=== PATIENT | male | born 1945 | race Caucasian/White ===

== ENCOUNTER 2020-04-16 11:43 | Outpatient (REF) | payer MEDICARE, SELFPAY ==
--- NOTE | 2020-04-16 12:09 | XR_ITS ---
EXAMINATION: XR CHEST CLINICAL INFORMATION: Hypertension and weight loss. Evaluate for lesion. COMPARISON: Previous chest x-ray most recent December 2017 TECHNIQUE: 2 views of the chest were obtained. FINDINGS: The cardiac and mediastinal contours are normal. There is a 1.3 cm nodule at the right lung base. This is seen on the PA view only and is similar to December 2017 exam. The lungs are otherwise clear. There is no pleural effusion or pneumothorax. There are bilateral rib fractures. There are degenerative changes of the spine. XR/XR chest 2V IMPRESSION: 1.3 cm right base pulmonary nodule. It is uncertain whether this represents a pulmonary nodule or a nipple shadow. Follow-up chest CT or chest x-ray with nipple markers recommended.
[2020-04-16 12:29] LABS: MANUAL DIFF FLAG NO
[2020-04-16 12:31] LABS: Basophils Percent Auto 0.3 % (0-2); Eosinophils Percent Auto 0.3 % (0-4); Hematocrit 43.3 % (42-52); Hemoglobin 14.2 g/dl (14.0-18.0); Imm Gran Abs Auto 0.03 X10*3/uL (0.00-0.03); Imm Gran Pct Auto 0.5 % (0.0-0.4); Lymphocytes Absolute Auto 1.5 X10*3/uL (1.2-4.9); Lymphocytes Percent Auto 23.4 % (20-40); Mean Corpuscular HGB Conc 32.8 g/dl (31.0-36.0); Mean Corpuscular Hemoglobin 30.4 pg (27.0-33.0); Mean Corpuscular Volume 92.7 fL (80-98); Mean Platelet Volume 11.5 fL (9.4-12.4); Monocytes Absolute Auto 1.1 X10*3/uL (0.1-1.2); Monocytes Percent Auto 17.1 % (2-11); Neutrophils Absolute Auto 3.8 X10*3/uL (2.0-8.3); Neutrophils Percent Auto 58.4 % (45-73); Platelet Count 267 X10*3/uL (160-400); Red Blood Count 4.67 X10*6/uL (4.60-5.80); Red Cell Distribution Width 13.3 % (11.0-16.0); White Blood Count 6.5 X10*3/uL (4.8-10.8)
[2020-04-16 12:38] LABS: Glucose Urine UA 100 MG/DL (NEG); Leukocyte Esterase Urine NEG (NEG); Nitrite Urine NEG (NEG); Specific Gravity - Urine 1.025 (1.005-1.025); Urine Blood NEG (NEG); Urine Ketones NEG (NEG); Urine Protein 1+ MG/DL (NEG-TRACE)
[2020-04-16 12:39] LABS: Appearance Urine CLEAR; Color Urine YELLOW
[2020-04-16 12:40] LABS: Estimated Average Glucose 255 mg/dL; Hemoglobin A1c % 10.5 %
[2020-04-16 12:47] LABS: WBC Urine 0 /HPF (0-4)
[2020-04-16 13:00] LABS: Alanine Aminotransferase 19 U/L (0-40); Albumin Level 4.4 g/dL (3.5-5.0); Alkaline Phosphatase 87 U/L (39-117); Anion Gap 13 (12-20); Aspartate Amino Transferase 20 U/L (5-37); Bilirubin Total 0.4 mg/dL (0.0-1.0); Blood Urea Nitrogen 15 mg/dL (9-16); Calcium 9.6 mg/dL (8.4-10.2); Carbon Dioxide 28 mmol/L (22-29); Chloride 99 mmol/L (96-108); Cholesterol 185 mg/dL; Estimated Glomerular Filt Rate > 60; Glucose Random 302 mg/dL (60-115); Potassium 5.9 mmol/l (3.3-5.1); Sodium 134 mmol/L (135-145); Total Protein 6.6 g/dL (6.5-8.0)
[2020-04-16 13:19] LABS: Free T4 (Free Thyroxine) 0.87 ng/dL (0.71-1.85)
[2020-04-16 13:31] LABS: Creatinine Urine 107.16 mg/dL
[2020-04-16 13:54] LABS: Microalbum/Creatinine Ratio Ur 444.1 ug/mg cr
== END 2020-04-16 11:44 | disposition home or self-care (01) ==
LOC: HO.LAB 11:43
PROVIDERS: PCP Internal Medicine; Visit Provider Internal Medicine
DX: E78.00 Pure hypercholesterolemia, unspecified (principal); I10 Essential (primary) hypertension; E11.9 Type 2 diabetes mellitus without complications; R63.4 Abnormal weight loss; N40.0 Benign prostatic hyperplasia without lower urinary tract symptoms
CPT/HCPCS: 36415; 71046; 80053; 81001; 82043; 82465; 83036; 84439; 85025

== ENCOUNTER 2020-05-02 12:57 | Outpatient (REF) | payer MEDICARE, SELFPAY ==
--- NOTE | 2020-05-02 13:00 | CT_ITS ---
EXAMINATION: CT CHEST WITHOUT CONTRAST CLINICAL INFORMATION: Right lower lobe nodule on chest radiograph. COMPARISON: CXR from 01/14/2018 and 04/16/2020. TECHNIQUE: Multidetector volumetric CT imaging of the chest was done. Axial MIP volume rendering provided. Sagittal and coronal reformatted images were obtained. This CT examination was performed using dose optimization techniques as appropriate, variously including the following: *Automated exposure control *Adjustment of mA and/or kV according to patient size (this includes techniques or standardized protocols for targeted exams where dose is matched to indication/reason for exam; i.e. extremities or head) *Use of iterative reconstruction technique DLP: 196 mGy-cm FINDINGS: LUNGS AND PLEURA: Trachea and central airways are widely patent and normal in caliber. Mild centrilobular emphysema and diffuse thickening of bronchial hi. These findings can be a manifestation of chronic obstructive pulmonary disease from cigarette smoking. Linear opacities of atelectasis and/or scarring are present in each lower lobe. No consolidation or pleural effusion. Multiple small noncalcified nodules are present in both lungs, including nodules measuring nearly 0.4 cm in the medial right lower lobe (image 390, series 7) and posterior left lower lobe (image 468, series 7). The nodular opacity observed on the recent follow-up radiograph likely represented the right nipple shadow. CARDIOVASCULAR: The heart size is normal. [id number] atherosclerotic calcification of coronary arteries. There is atherosclerosis of the thoracic aorta without aneurysm. Pulmonary arteries are normal in size. No pericardial effusion. MEDIASTINUM AND LOWER NECK: Esophagus is not well evaluated on this noncontrast examination. There appears to be a small amount of fluid/debris and gas in the lumen of the esophagus without overt wall thickening. No mediastinal mass. Thyroid gland is unremarkable. LYMPHATICS: No axillary or internal mammary lymphadenopathy. No pathologic sized mediastinal or hilar lymph nodes. UPPER ABDOMEN: Atherosclerosis of the partially visualized abdominal aorta. 2.1 cm cortical cyst of the medial upper pole the right kidney has a simple appearance on these noncontrast images. A right adrenal mass measures 2 cm wide, density of - 6 HU. Left adrenal mass measures 2.5 cm wide, density of - 9 HU. These lipid rich adrenal adenomas have not significantly changed in size compared to 05/30/2015. Small calcification at the capsular surface of the liver (image 579, series 7). Punctate liver calcification near the gallbladder fossa. SKELETAL AND CHEST WALL: No chest wall mass. No aggressive osseous lesions within the thorax. There is multilevel enthesophyte/osteophyte formation of the thoracic spine. CT/CT chest wo con IMPRESSION: * Mild pulmonary emphysema and diffuse thickening of bronchial hi. Findings are consistent with history of chronic obstructive pulmonary disease in this patient with cigarette smoking history. * Multiple small noncalcified pulmonary nodules of < 0.5 cm size are noted. In a patient with risk factors, consider noncontrast chest CT follow up in 12 months to ensure stability of nodules. * Lipid rich adrenal adenomas have not significantly changed in size compared to 05/30/2015. * Atherosclerosis of coronary arteries and thoracic aorta without aortic aneurysm.
== END 2020-05-02 12:58 | disposition home or self-care (01) ==
LOC: HO.CT 12:57
PROVIDERS: PCP Internal Medicine; Visit Provider Internal Medicine
DX: R91.1 Solitary pulmonary nodule (principal); F17.210 Nicotine dependence, cigarettes, uncomplicated
CPT/HCPCS: 71250

== ENCOUNTER 2020-07-06 10:19 | Emergency (ER) | payer MEDICARE, SELFPAY ==
--- NOTE | ~2020-07-06 | XR_ITS ---
EXAMINATION: XR LUMBOSACRAL SPINE CLINICAL INFORMATION: Back pain after lifting heavy object. COMPARISON: MRI of 05/28/15. TECHNIQUE: Three views of the lumbosacral spine. FINDINGS: Multilevel spondylosis is evident in the lower thoracic and lumbar spine with marginal osteophytosis. Disc spaces are well maintained. No fracture or other acute abnormality is seen. Facet arthropathy is evident in the lower lumbar spine. There is extensive calcification in the abdominal aorta with no aneurysm evident. XR/XR lumbar spine 2-3V IMPRESSION: Multilevel spondylosis. Disc spaces are well-maintained. Facet arthropathy. No fracture or other acute abnormality.
[2020-07-06 10:55] VITALS: BP 151/100; PULSE 82; RESP 16; TEMP 36.8; O2SAT 95; BMI 28.1
--- NOTE | 2020-07-06 11:35 | ED.BACK ---
HPI - Back Pain/Injury General Chief Complaint: Back Pain/Injury Stated Complaint: BACK PAIN Time Seen by Provider: 07/06/20 11:25 Source: patient Mode of arrival: ambulatory Limitations: no limitations History of Present Illness HPI Narrative: 74 yo male with past medical history of insulin-dependent diabetes, hypertension, hyperlipidemia, GERD here with left lower back pain after picking up blood. The patient tells me he was picking up with the foot is with dove and felt pain in his left lower back. Pain radiates the left buttocks. There is no numbness or tingling. No saddle anesthesia. No bowel or bladder incontinence. No fevers or chills. The patient is ambulatory. Took naproxen at home with continued pain. MD elicited complaint: back pain Related Data Previous Rx's Medication Instructions Recorded cyclobenzaprine 10 mg PO TID PRN #10 tab 07/06/20 lidocaine [Lidoderm] 1 patch TOPICAL DAILY #15 ea 07/06/20 oxycodone 5 mg PO .q6 PRN #10 tab 07/06/20 Allergies Allergy/AdvReac Type Severity Reaction Status Date / Time No Known Allergies Allergy Unverified 02/08/20 14:57 [No Known Allergies*] Review of Systems Review of Systems: Yes all other systems are reviewed and are negative Constitutional: Constitutional: Reports no additional constitutional complaints, Denies body ache(s), Denies chills, Denies fever(s), Denies headache(s) and Denies weakness Eyes: Eyes: Reports no additional eye complaints and Denies change in vision ENT: Reports system reviewed and no additional complaints, except as documented, Denies dizziness, Denies headache(s), Denies nasal congestion, Denies nasal discharge and Denies neck pain Cardiovascular: Cardiovascular: Reports no additional cardiovascular complaints, Denies chest pain, Denies leg edema and Denies dyspnea Respiratory: Respiratory: Reports no additional respiratory complaints, Denies cough and Denies dyspnea Gastrointestinal: Gastrointestinal: Reports no additional gastrointestinal complaints, Denies abdominal pain, Denies diarrhea, Denies nausea and Denies vomiting Genitourinary: Genitourinary: Denies urinary incontinence Musculoskeletal: Musculoskeletal: Reports no additional musculoskeletal complaints, Reports back pain, Denies arthralgias, Denies joint swelling, Denies neck pain, Denies numbness and Denies tingling Integumentary/Breasts: Skin/Breast: Reports system reviewed and no additional complaints, except as docu and Denies rash Neurologic: Reports system reviewed and no additional complaints, except as documented, Denies Abnormal speech present, Denies dizziness, Denies headache(s), Denies numbness, Denies tingling and Denies weakness PMFSH Past Medical History Attestation statement: The following information was validated with the patient. Source: old records reviewed and nursing notes reviewed Medical History Chronic GERD High cholesterol HTN (hypertension) IDDM (insulin dependent diabetes mellitus) Social History Social History Smoking Status: Current every day smoker Smoked in Last 30 Days: Yes Use of substances other than those prescribed or required for medical reasons: No Advance Directives: No Advance Directives Information Provided: Yes Physical Exam Vital Signs: Vital Signs: Last Vital Signs Temp 98.2 F 07/06/20 10:55 Pulse 82 07/06/20 10:55 Resp 16 07/06/20 10:55 BP 151/100 H 07/06/20 10:55 Pulse Ox 95 07/06/20 10:55 Body Mass Index 28.1 Const: General: cooperative, healthy appearing, comfortable and no acute distress Orientation/consciousness: patient oriented x3 Limitations: no limitations HENMT: Head: Yes normal to inspection Ears: hearing grossly normal bilaterally General nose exam: Normal external nose present Face and sinus: Yes normal facial exam Mouth: Normal oral and palatal mucosa present Throat: Yes posterior oropharynx normal Eyes: General: appearance normal, both eyes and all related structures Pupils: Equal, round and reactive pupils present Neck: Neck: Yes normal visual inspection Chest: Chest palpation & inspection: normal inspection of the chest Resp: Effort & Inspection: normal respiratory effort Auscultation: clear to auscultation bilaterally Cardio: Rate: regular rate Rhythm: regular rhythm Peripheral pulses: Peripheral pulses 2+ throughout GI: Inspection: Yes normal to inspection Palpation (GI): Soft to palpation and nontender Auscultation: normal bowel sounds Back/Spine/Pelvis: Other: Lower midline lumbar tenderness with left paraspinal lumbar tenderness. No step-offs or deformities. Thoracic/Lumbar Spine: thoracic and lumbar spine normal to inspection Skin: General skin exam: no rashes or lesions noted Neuro: General: patient oriented x3, no focal motor deficits and normal sensation to monofilament Cranial nerves: Yes CN's II-XII intact bilaterally and Yes Equal, round and reactive pupils present Cognition (Neuro): normal cognition Speech: No Abnormal speech present Gait exam (Neuro): Normal gait present Motor exam (neuro): 5/5 motor strength present throughout Sensory Exam: Normal double simultaneous stimulation for sensation Deep tendon reflexes (DTR's): Right patellar reflex intensity grade: 2+ and Left patellar reflex intensity grade: 2+ Extrem: General: Yes normal to inspection Course Course Course Narrative: Lower back pain status post bending over to lift up a piece of wood. No neurological deficits. No red flag symptoms. X-ray shows some degenerative changes but no other abnormality. Patients pain is improved after 1 dose of oxycodone here in the emergency department. I discussed with the patient that he may have a lumbar strain or a herniated disc. I discussed that we will send him home with some medicine to help with discomfort and then he can follow up with his primary care doctor for persistent pain as he then will need an MRI. I discussed with the patient that he does not need an emergent MRI today in the emergency department. Reviewed worrisome signs and symptoms and when to return to the emergency department. Comfortable discharge home. MDM - Back Pain/Injury Medical Records Attestation: I reviewed the patient's medical records. Lab Data Attestation: I reviewed the patient's lab results. Imaging Data lumbar xray: Attestation: I personally reviewed and interpreted this imaging study as follows: Radiologist's impression: EXAMINATION: XR LUMBOSACRAL SPINE CLINICAL INFORMATION: Back pain after lifting heavy object. COMPARISON: MRI of 05/28/15. TECHNIQUE: Three views of the lumbosacral spine. FINDINGS: Multilevel spondylosis is evident in the lower thoracic and lumbar spine with marginal osteophytosis. Disc spaces are well maintained. No fracture or other acute abnormality is seen. Facet arthropathy is evident in the lower lumbar spine. There is extensive calcification in the abdominal aorta with no aneurysm evident. XR/XR lumbar spine 2-3V IMPRESSION: Multilevel spondylosis. Disc spaces are well-maintained. Facet arthropathy. No fracture or other acute abnormality. Discharge Plan Discharge Clinical Impression: Strain of lumbar region Patient Disposition: Home, Self-Care Instructions: Low Back Strain (ED) Additional Instructions: Your x-rays show arthritis but no other acute finding Apply ice or heat to the area Gentle stretching Start taking medications for pain as needed Call Dr. Borrero office Wednesday for persistent pain as you might need MRI to evaluate the discs Prescriptions: New cyclobenzaprine 10 mg tablet 10 mg PO TID PRN (Reason: muscle spasm) Qty: 10 RF: 0 lidocaine [Lidoderm] 5 % adhesive patch,medicated 1 patch topical DAILY Qty: 15 RF: 0 oxycodone 5 mg tablet 5 mg PO .q6 PRN (Reason: pain) Qty: 10 RF: 0 Referrals: Baldemar Borrero MD [Primary Care Provider] - 2 days Interventions: ED Discharge Assessment Last Done: 07/06/20 12:37 Discharge Date/Time: 07/06/20 12:39
[2020-07-06] MEDS: oxyCODONE HCl Immed Release 5 MG TABLET PO (12:15)
== END 2020-07-06 12:39 | disposition home or self-care (01) ==
PROVIDERS: Emergency Provider Emergency Medicine Emergency Medical Services; PCP Internal Medicine
DX: S39.012A Strain of muscle, fascia and tendon of lower back, initial encounter (principal); X50.0XXA Overexertion from strenuous movement or load, initial encounter; E11.9 Type 2 diabetes mellitus without complications; I10 Essential (primary) hypertension; Y93.89 Activity, other specified; Y92.019 Unspecified place in single-family (private) house as the place of occurrence of the external cause; Y99.9 Unspecified external cause status; Z79.4 Long term (current) use of insulin
CPT/HCPCS: 72100; 99283

== ENCOUNTER 2020-07-17 14:44 | Outpatient (REF) | payer MEDICARE, SELFPAY ==
[2020-07-17 15:44] LABS: MANUAL DIFF FLAG NO
[2020-07-17 15:51] LABS: Basophils Percent Auto 0.3 % (0-2); Eosinophils Percent Auto 0.3 % (0-4); Hematocrit 40.4 % (42-52); Hemoglobin 13.6 g/dl (14.0-18.0); Imm Gran Abs Auto 0.09 X10*3/uL (0.00-0.03); Lymphocytes Absolute Auto 1.9 X10*3/uL (1.2-4.9); Lymphocytes Percent Auto 21.4 % (20-40); Mean Corpuscular HGB Conc 33.7 g/dl (31.0-36.0); Mean Corpuscular Hemoglobin 30.8 pg (27.0-33.0); Mean Corpuscular Volume 91.6 fL (80-98); Mean Platelet Volume 11.4 fL (9.4-12.4); Monocytes Absolute Auto 1.2 X10*3/uL (0.1-1.2); Monocytes Percent Auto 13.7 % (2-11); Neutrophils Absolute Auto 5.7 X10*3/uL (2.0-8.3); Neutrophils Percent Auto 63.3 % (45-73); Platelet Count 292 X10*3/uL (160-400); Red Blood Count 4.41 X10*6/uL (4.60-5.80); Red Cell Distribution Width 13.1 % (11.0-16.0); White Blood Count 9.1 X10*3/uL (4.8-10.8)
[2020-07-17 16:01] LABS: Estimated Average Glucose 252 mg/dL; Hemoglobin A1c % 10.4 %
[2020-07-17 16:20] LABS: Troponin-I High Sensitivity 15.4 ng/L (<3.5-35.0)
[2020-07-17 16:25] LABS: Alanine Aminotransferase 22 U/L (0-40); Albumin Level 4.4 g/dL (3.5-5.0); Alkaline Phosphatase 98 U/L (39-117); Anion Gap 14 (12-20); Aspartate Amino Transferase 21 U/L (5-37); Bilirubin Total 0.3 mg/dL (0.0-1.0); Blood Urea Nitrogen 19 mg/dL (9-16); C Reactive Protein 0.19 mg/dL (< or = 0.50); Calcium 9.4 mg/dL (8.4-10.2); Carbon Dioxide 27 mmol/L (22-29); Chloride 102 mmol/L (96-108); Estimated Glomerular Filt Rate > 60; Glucose Random 367 mg/dL (60-115); Potassium 5.6 mmol/L (3.3-5.1); Sodium 137 mmol/L (135-145); Total Protein 6.7 g/dL (6.5-8.0)
[2020-07-17 17:02] LABS: Prostate Specific Antigen Scr 0.44 ng/mL (<0.05-4.0)
== END 2020-07-17 14:45 | disposition home or self-care (01) ==
LOC: HO.LAB 14:44
PROVIDERS: PCP Internal Medicine; Visit Provider Internal Medicine
DX: R42 Dizziness and giddiness (principal); J44.9 Chronic obstructive pulmonary disease, unspecified; R63.4 Abnormal weight loss; E11.9 Type 2 diabetes mellitus without complications; Z12.5 Encounter for screening for malignant neoplasm of prostate
CPT/HCPCS: 36415; 80053; 82550; 83036; 84153; 84484; 85025; 86140

== ENCOUNTER → 2020-07-22 08:26 | Outpatient (BNVA) | payer MEDICARE, SELFPAY | PROVIDERS: PCP Internal Medicine; Visit Provider Internal Medicine Cardiovascular Disease | DX: R94.31 Abnormal electrocardiogram [ECG] [EKG] (principal); R01.1 Cardiac murmur, unspecified; I10 Essential (primary) hypertension | CPT/HCPCS: 99202 ==

== ENCOUNTER → 2020-07-29 08:32 | Outpatient (REF) | payer MEDICARE, SELFPAY ==
--- NOTE | ~2020-07-29 | NM_ITS ---
Exercise Myocardial perfusion study Indication: Abnormal EKG to evaluate for myocardial ischemia Technique: The patient was brought in for an exercise perfusion study on 07/29/2020. Patient performed exercise as per Izaiah protocol and was injected 25 mCi of sestamibi was given intravenously one target HR was achieved. Images were obtained using the SPECT gamma camera interlaced with the gating device. Images were obtained in supine position. Resting perfusion study was performed on 07/30/2020. Patient was administered 25 mCi of sestamibi intravenously at rest. Images were then obtained in supine position. Images obtained with and without CT attenuation. Total DLP 73mGy-cm. Images were processed with the software and compared side to side in short axis, horizontal long axis and vertical long axis views. Findings: The stress perfusion study showed large area of absent uptake on isoattenuated images of the inferior apical and distal and mid inferolateral and severely reduced uptake in the inferoseptal and basal inferolateral wall of the LV myocardium wall of the LV myocardium.. The gated study shows low normal LV systolic function with calculated LVEF of 52%. LV cavity is mildly dilated in size. The gated study shows reduced wall thickening and contraction of inferior and inferolateral segments. There is mild transient ischemic dilation. Resting study shows large area of severely reduced uptake in the inferior, apical, distal and mid inferolateral wall of the LV myocardium. There is moderately reduced uptake in the basal inferolateral and mildly reduced uptake in the distal lateral wall of the LV myocardium.. Gating at rest reveals inferior and inferolateral wall motion with ejection fraction at 47%. The findings are consistent with large area all minimally reversible defect of the inferior and inferolateral wall most suggestive of severe ischemia with underlying wall motion highly suggestive of hibernating myocardium.. NM/NM cardiolite stress test Impression: 1. Large area of severely ischemic myocardium of the inferior and inferolateral wall of the LV myocardium RCA/circumflex territory 2. Gated LVEF is 52% with stress and 47% at rest 3. Transient ischemic dilatation present Stress EKG is equivocal for ischemia
--- NOTE | 2020-07-29 08:35 | CA_ITS ---
Transthoracic Echocardiogram Patient (Last, First, Middle): Zachery Mckeon L Gender: Male Date of : 1945 Age: 74 Procedure Date: 07/29/2020 Procedure Type: Transthoracic Echocardiogram Location: OP Height: 172.72 cm Weight: 82.56 kg BSA: 1.96 m2 Heart Rate: bpm BP: 120 / 80 mmHg Director Loss Prevention: JOSE C Referring MD: Rosas Juan MD Symptoms: R94.31 - Abnormal electrocardiogram [ECG] [EKG] Study Quality: Fair ECG Rhythm: Sinus Conclusions: - The left ventricular systolic function is normal. The visually estimated ejection fraction is between 55-60%. - The basal inferior segment is akinetic. - There is moderate calcification of the aortic valve. There is mild aortic valve stenosis. - There is mild mitral valve regurgitation. Findings Left Ventricle Normal left ventricular cavity size. There is mildly increased left ventricular wall thickness. The left ventricular systolic function is normal. The visually estimated ejection fraction is between 55-60%. There is evidence of regional wall motion abnormalities. Wall Motion Rest Echo Findings The basal inferior segment is akinetic. Right Ventricle Normal right ventricular cavity size and systolic function. Atria Both atria are normal in size. Aortic Valve There is a normal trileaflet aortic valve. There is moderate calcification of the aortic valve. There is mild aortic valve stenosis. The peak aortic velocity is 2.29 m/s with a calculated peak gradient of 21 mmHg. The mean gradient is 11 mmHg. The aortic valve area is 1.83 cm2. There is mild aortic valve regurgitation. Mitral Valve There is mild mitral annular calcification. There is mild mitral valve regurgitation. There is no mitral valve stenosis. Pulmonic Valve The pulmonic valve was not well visualized. Tricuspid Valve Normal tricuspid valve structure. There is trace tricuspid valve regurgitation. The pulmonary artery systolic pressure is normal. Great Vessels The aortic annulus, sinuses of valsalva, asc aorta, and aortic arch are normal in size. Venous The inferior vena cava is normal in size and collapses greater than 50% with inspiration. Pericardium/Pleural There is no evidence of pericardial effusion. Prior Study Comparison Changes noted compared to prior study dated: 04/17/2008. See comments on wall motion. Measurements 2D Linear Measurements IVSd: 1.03 0.6-0.9/0.6-1.0 cm LVIDd: 4.52 3.9-5.3/4.2-5.9 cm LVIDd Index: 2.31 2.4-3.2/2.2-3.1 cm/m2 LVIDs: 3.23 2.0-3.6 cm LVPWd: 1.03 0.7-1.1 cm Ao Root: 3.50 2.1-3.5 cm LA Diam: 3.80 2.7-3.8/3.0-4.0 cm LAIDs Index: 1.94 1.5-2.3 cm/m2 LV Mass: 200.25 67-162/88-224 g LV Mass Index: 102.17 43-95/49-115 g/m2 LVOT Diam: 2.30 3.0+(-)1.3 cm 2D Systolic Function EF 4C: 55.10 >55% EF 2C: 49.70 >55% EF BiP: 54.40 >55% Mitral Valve MV Pk E: 0.67 MV PK A: 0.97 MV Decel Time: 246.00 E/A: 0.70 E'Lateral: 6.29 E'Medial: 7.16 E/E' Med: 9.40 E/E' Lat: 10.70 PHT: 72.00 MVA PHT: 3.06 Decel Trimble: 2.74 Aortic Valve AoV Pk Pa: 2.29 AoV Mn Pa: 1.51 AoV VTI: 0.51 AoV Pk Grad: 21.00 Aov Mn Grad: 11.00 ANTOINETTE Cont.VTI: 1.83 AI Pk Pa: 3.39 AI Trimble: 1.21 LVOT LVOT Pk Pa: 0.98 LVOT Mn Pa: 0.65 LVOT VTI: 0.23 LVOT Pk Grad: 4.00 LVOT Mn Grad: 2.00 LVOT Diam: 2.30 LVOT Area: 4.15 Diastolic Function MV Pk E: 0.67 MV Pk A: 0.97 E/A: 0.70 E'Medial: 7.16 E/E' Med: 9.40 E' Laterial: 6.29 E/E' Lat: 10.70 Tricuspid Valve TR Pk Pa: 1.87 TR Pk Grad: 14.00 RA Press: 3.00 RVSP: 17.00 Great Vessels Aorta Ao Root-2D: 3.50 2.0-3.7 cm Ao Asc: 3.40 2.1-3.4 cm Ao Arch: 2.90 Updated in Other Vendor System with Status of Final Leonidas Ruiz MD electronically signed on 07/30/2020 9:34:28 AM with status of Final
--- NOTE | 2020-07-29 09:30 | CA_ITS ---
Acquisition Time: 2020-07-29 10:56:16 Total Exercise Time: 00:06:05 Test Indications: HTN TYPE II DM ABN EKG Medications: Protocol: ROSA Max HR: 117 BPM 80% of Pred: 146 BPM Max BP: 164/078 mmHG Max Work Load: 7.3 METS Exercise stress test using Rosa protocol second stage held and speed and incline mannualy increased. Total of 6 min 5 sec. METS and TAPHR up to 80%. Denies any anginal sx. EKG with t wave inversions seen inferiorly and laterally, before exercise, deeper in peak exercise, that went back to baseline. Nuclear images to follow. Normotensive response to exercise. Test reviewed with Dr. Juan. Referred By: Rosas Juan Overread By: SERENA
== END ==
LOC: HO.CARD 08:32
PROVIDERS: PCP Internal Medicine; Visit Provider Internal Medicine Cardiovascular Disease
DX: R01.1 Cardiac murmur, unspecified (principal); I10 Essential (primary) hypertension; R94.31 Abnormal electrocardiogram [ECG] [EKG]; E11.9 Type 2 diabetes mellitus without complications
CPT/HCPCS: 78452; 93016; 93017; 93018; 93306; A9500

== ENCOUNTER → 2020-07-31 11:18 | Outpatient (BNVA) | payer MEDICARE, SELFPAY | PROVIDERS: PCP Internal Medicine; Visit Provider Internal Medicine Cardiovascular Disease | DX: R93.1 Abnormal findings on diagnostic imaging of heart and coronary circulation (principal); F17.200 Nicotine dependence, unspecified, uncomplicated; Z79.899 Other long term (current) drug therapy; Z71.6 Tobacco abuse counseling | CPT/HCPCS: 99212 ==

== ENCOUNTER 2020-08-02 13:00 | Outpatient (RCR) | payer MEDICARE, SELFPAY ==
[2020-07-22 12:53] VITALS: BP 139/81; PULSE 90; O2SAT 95
== END 2020-08-16 10:46 | disposition home or self-care (01) ==
LOC: HO.PTCHIC 13:00
PROVIDERS: PCP Internal Medicine; Visit Provider Internal Medicine
DX: S33.6XXD Sprain of sacroiliac joint, subsequent encounter (principal)
CPT/HCPCS: 97110; 97161; 97530

== ENCOUNTER 2020-08-02 15:28 | Outpatient (REF) | payer MEDICARE, SELFPAY ==
[2020-08-02 15:59] LABS: MANUAL DIFF FLAG NO
[2020-08-02 16:03] LABS: Basophils Percent Auto 0.2 % (0-2); Eosinophils Absolute Auto 0.1 X10*3/uL (0.0-0.4); Eosinophils Percent Auto 0.8 % (0-4); Hematocrit 40.3 % (42-52); Hemoglobin 13.1 g/dl (14.0-18.0); Imm Gran Abs Auto 0.05 X10*3/uL (0.00-0.03); Imm Gran Pct Auto 0.6 % (0.0-0.4); Lymphocytes Absolute Auto 1.9 X10*3/uL (1.2-4.9); Lymphocytes Percent Auto 22.2 % (20-40); Mean Corpuscular HGB Conc 32.5 g/dl (31.0-36.0); Mean Corpuscular Hemoglobin 30.4 pg (27.0-33.0); Mean Corpuscular Volume 93.5 fL (80-98); Mean Platelet Volume 10.9 fL (9.4-12.4); Monocytes Absolute Auto 1.5 X10*3/uL (0.1-1.2); Monocytes Percent Auto 17.1 % (2-11); Neutrophils Absolute Auto 5.1 X10*3/uL (2.0-8.3); Neutrophils Percent Auto 59.1 % (45-73); Platelet Count 268 X10*3/uL (160-400); Red Blood Count 4.31 X10*6/uL (4.60-5.80); Red Cell Distribution Width 13.4 % (11.0-16.0); White Blood Count 8.6 X10*3/uL (4.8-10.8)
[2020-08-02 16:27] LABS: C Reactive Protein 0.45 mg/dL (< or = 0.50)
[2020-08-02 17:35] LABS: Erythrocyte Sedimentation Rate 16 MM/HR (0-15)
== END 2020-08-02 15:29 | disposition home or self-care (01) ==
LOC: HO.LAB 15:28
PROVIDERS: PCP Internal Medicine; Visit Provider Ophthalmology
DX: H47.10 Unspecified papilledema (principal)
CPT/HCPCS: 36415; 85025; 85652; 86140

== ENCOUNTER → 2020-08-05 09:48 | Outpatient (BNVA) | payer MEDICARE, SELFPAY | PROVIDERS: PCP Internal Medicine; Visit Provider Nurse Practitioner Family | DX: R93.1 Abnormal findings on diagnostic imaging of heart and coronary circulation (principal); I10 Essential (primary) hypertension; F17.200 Nicotine dependence, unspecified, uncomplicated; Z71.6 Tobacco abuse counseling | CPT/HCPCS: Q3014 ==

== ENCOUNTER 2020-08-13 12:13 | Outpatient (REF) | payer MEDICARE, SELFPAY ==
[2020-08-13 14:05] LABS: Basophils Percent Auto 0.2 % (0-2); Eosinophils Percent Auto 0.4 % (0-4); Hemoglobin 12.8 g/dl (14.0-18.0); Imm Gran Abs Auto 0.08 X10*3/uL (0.00-0.03); Lymphocytes Absolute Auto 1.6 X10*3/uL (1.2-4.9); MANUAL DIFF FLAG SCAN; Mean Corpuscular HGB Conc 32.8 g/dl (31.0-36.0); Mean Corpuscular Hemoglobin 30.5 pg (27.0-33.0); Mean Corpuscular Volume 93.1 fL (80-98); Mean Platelet Volume 11.5 fL (9.4-12.4); Monocytes Absolute Auto 1.7 X10*3/uL (0.1-1.2); Monocytes Percent Auto 20.6 % (2-11); Neutrophils Absolute Auto 4.9 X10*3/uL (2.0-8.3); Neutrophils Percent Auto 58.8 % (45-73); Platelet Count 302 X10*3/uL (160-400); Red Blood Count 4.19 X10*6/uL (4.60-5.80); Red Cell Distribution Width 13.7 % (11.0-16.0); SCAN SMEAR FLAG 1; White Blood Count 8.4 X10*3/uL (4.8-10.8)
[2020-08-13 14:13] LABS: Estimated Average Glucose 235 mg/dL; Hemoglobin A1c % 9.8 %
[2020-08-13 14:40] LABS: Alanine Aminotransferase 29 U/L (0-40); Albumin Level 4.2 g/dL (3.5-5.0); Alkaline Phosphatase 100 U/L (39-117); Anion Gap 18 (12-20); Aspartate Amino Transferase 29 U/L (5-37); Bilirubin Total 0.3 mg/dL (0.0-1.0); Blood Urea Nitrogen 20 mg/dL (9-16); Calcium 8.7 mg/dL (8.4-10.2); Carbon Dioxide 23 mmol/L (22-29); Chloride 107 mmol/L (96-108); Estimated Glomerular Filt Rate > 60; Glucose Random 137 mg/dL (60-115); Potassium 5.2 mmol/L (3.3-5.1); Sodium 143 mmol/L (135-145); Total Protein 6.3 g/dL (6.5-8.0)
[2020-08-13 15:00] LABS: SLIDE REVIEW VERIFIED
== END 2020-08-13 12:14 | disposition home or self-care (01) ==
LOC: HO.10HDL 12:13
PROVIDERS: Visit Provider Internal Medicine
DX: E11.9 Type 2 diabetes mellitus without complications (principal); I10 Essential (primary) hypertension; I25.10 Atherosclerotic heart disease of native coronary artery without angina pectoris
CPT/HCPCS: 36415; 80053; 83036; 85025

== ENCOUNTER → 2020-08-14 11:31 | Outpatient (BNVA) | payer MEDICARE, SELFPAY | PROVIDERS: PCP Internal Medicine; Visit Provider Internal Medicine Cardiovascular Disease | DX: I25.10 Atherosclerotic heart disease of native coronary artery without angina pectoris (principal); I10 Essential (primary) hypertension | CPT/HCPCS: 99212 ==

== ENCOUNTER 2020-08-19 13:17 | Outpatient (REF) | payer MEDICARE, SELFPAY ==
--- NOTE | ~2020-08-19 | MR_ITS ---
EXAMINATION: MR BRAIN WITHOUT AND WITH CONTRAST CLINICAL INFORMATION: Bilateral visual field defect. Complaint of decreased vision. COMPARISON: None available. TECHNIQUE: Multiplanar, multisequence imaging of the brain was performed before and after the intravenous administration of 8.5 mL of Gadavist. FINDINGS: There is no acute infarction, mass, hemorrhage, or extra-axial collection. No abnormal or unexpected intracranial enhancement is seen. The ventricles, sulci, and basilar cisterns are normal in size and configuration. A few minimal foci of T2/FLAIR hyperintensity are seen within the cerebral white matter, nonspecific finding. The flow voids of the major intracranial arteries appear intact. The bones and extracranial soft tissues are within normal limits. There is small amount of fluid within the left mastoid. The orbital contents appear normal. No compressive lesion is seen. MR/MR head/brain wo/w con IMPRESSION: No mass lesion, acute infarction, or abnormal intracranial enhancement. No orbital abnormality identified.
[2020-08-19 13:59] LABS: Blood Urea Nitrogen 16 mg/dL (9-16); Estimated Glomerular Filt Rate > 60
== END 2020-08-19 13:18 | disposition home or self-care (01) ==
LOC: HO.MRI 13:17
PROVIDERS: Visit Provider Ophthalmology
DX: H53.453 Other localized visual field defect, bilateral (principal)
CPT/HCPCS: 36415; 70553; 82565; 84520; A9585

== ENCOUNTER 2020-08-21 12:52 | Outpatient (REF) | payer MEDICARE, SELFPAY ==
--- NOTE | ~2020-08-21 | US_ITS ---
EXAMINATION: US DUPLEX LOWER EXTREMITY, BILATERAL CLINICAL INFORMATION: History of hypertension, smoking, hyperlipidemia and diabetes. COMPARISON: None TECHNIQUE: Real-time ultrasound and Doppler techniques (integrating B-mode 2-D vascular images, Doppler spectral analysis and color flow Doppler imaging) were utilized to interrogate the lower extremities. FINDINGS: RIGHT LEG: Common Femoral Artery: 158 cm/s, biphasic. Profunda Femoris Artery: 172 cm/s, biphasic. Superficial Femoral Artery (proximal): 129 cm/s, biphasic. Superficial Femoral Artery (mid): 228 cm/s, biphasic. Superficial Femoral Artery (distal): 130 cm/s, biphasic. Popliteal Artery: 181 cm/s, biphasic. Posterior Tibial Artery: 142 cm/s, biphasic. LEFT LEG: Common Femoral Artery: 125 cm/s, triphasic. Profunda Femoris Artery: 256 cm/s, biphasic. Superficial Femoral Artery (proximal): 177 cm/s, biphasic. Superficial Femoral Artery (mid): 84 cm/s, triphasic. Superficial Femoral Artery (distal): 271 cm/s, biphasic. Popliteal Artery: 127 cm/s, biphasic. Posterior Tibial Artery: 69 cm/s, monophasic. Atherosclerosis is seen bilaterally. US/US arterial duplex LE BI IMPRESSION: 1. Right: Moderate hemodynamically significant stenosis involving the mid SFA. Mild, non-hemodynamically significant stenosis seen throughout the remainder of the right lower extremity by duplex criteria. 2. Left: Moderate hemodynamically significant stenosis involving the proximal profunda femoris artery and distal SFA.
== END 2020-08-21 12:53 | disposition home or self-care (01) ==
LOC: HO.US 12:52
PROVIDERS: Visit Provider Internal Medicine Cardiovascular Disease
DX: I70.203 Unspecified atherosclerosis of native arteries of extremities, bilateral legs (principal)
CPT/HCPCS: 93925

== ENCOUNTER → 2020-08-29 11:46 | Outpatient (BNVA) | payer MEDICARE, SELFPAY | PROVIDERS: PCP Internal Medicine; Visit Provider Surgery Vascular Surgery | DX: I73.9 Peripheral vascular disease, unspecified (principal) | CPT/HCPCS: 99202 ==

== ENCOUNTER 2020-09-25 08:06 | Day surgery (SDC) | payer MEDICARE, SELFPAY ==
[2020-09-19 15:28] VITALS: BMI 28.1
--- NOTE | 2020-09-24 09:19 | HO.ANESPROP2 ---
Documented by User: Emma Puri 09/24/20 09:30 HPI - Anesthesia Eval Consult details Narrative: 74yo M for Colonoscopy Pending: Cardiac clearance s/p cath 07/2020: severe RCA disease, failed angio d/t dissection, + collaterals, no EKG changes; continue with med tx (asa/plavix); consider cath at later date depending on symptomology PMFSH Active Problems Active Problems: All Active Problems (Updated 09/19/20 @ 16:08 by Jordana Goldsmith) HTN (hypertension) (Acute) Diabetes mellitus (Acute) Hyperlipidemia (Acute) Abnormal EKG (Acute) Systolic murmur (Acute) PAD (peripheral artery disease) (Acute) CAD (coronary artery disease) (Acute) Past Medical History Medical History CAD (coronary artery disease) Chronic GERD Hiatal hernia High cholesterol HTN (hypertension) IDDM (insulin dependent diabetes mellitus) Multilevel spondylosis Family History Family History Father Enlarged heart Mother Cancer Surgical History Surgical History History of esophagogastroduodenoscopy (EGD) History of surgery Hx of colonoscopy S/P cardiac cath Social History Social History Smoking Status: Current every day smoker Tobacco Type: Cigarette Cigarettes Per Day: 10 Years Smoked: 60 Use of substances other than those prescribed or required for medical reasons: No Are you DNR?: No Advance Directives: No Advance Directives Information Provided: No Advance Directives on File: No Meds Allergies Allergy/AdvReac Type Severity Reaction Status Date / Time No Known Allergies Allergy Verified 08/14/20 11:43 [No Known Allergies*] Home Medications Medication Instructions Recorded Confirmed Last Taken Type aspirin 81 mg tablet,delayed 81 mg PO DAILY 07/22/20 09/19/20 Unknown History release lisinopril 20 mg tablet 20 mg PO DAILY 07/22/20 09/19/20 Unknown History metformin 500 mg tablet 500 mg PO BID 07/22/20 09/19/20 Unknown History omeprazole 20 mg capsule,delayed 20 mg PO QAM 07/22/20 09/25/20 09/25/20 History release ropinirole 2 mg tablet 2 mg PO BEDTIME 07/22/20 09/19/20 Unknown History insulin glargine [Lantus U-100 30 unit SUBCUT BID 09/19/20 09/19/20 Unknown History Insulin] Exam Exam Date and Time: September 24, [id number] Height,Weight and Vital Signs: Height 5 ft 8 in Weight 83.915 kg Pertinent Lab Results Pertinent Lab Results: Laboratory Tests 08/13/20 08/13/20 08/19/20 12:20 12:20 13:28 WBC 8.4 Hgb 12.8 L Hct 39.0 L Plt Count 302 Sodium 143 Potassium 5.2 H Chloride 107 Carbon Dioxide 23 BUN 16 Creatinine 1.03 Narrative Narrative: EKG (per cardiac note) showed inferior ST depression and inversion with poor R-wave progression in the anterior leads. Possible Q-waves in lead 3 ECHO 07/2020 Conclusions: - The left ventricular systolic function is normal. The visually estimated ejection fraction is between 55-60%. - The basal inferior segment is akinetic. - There is moderate calcification of the aortic valve. There is mild aortic valve stenosis. - There is mild mitral valve regurgitation. NM cardiolite stress test 07/2020 Impression: 1. Large area of severely ischemic myocardium of the inferior and inferolateral wall of the LV myocardium RCA/circumflex territory 2. Gated LVEF is 52% with stress and 47% at rest 3. Transient ischemic dilatation present Stress EKG is equivocal for ischemia Cath 07/2020 (see HPI) Assessment and Plan Assessment Anesthesia Assessment: Chart Reviewed Documented by User: Bridget Zimmer 09/25/20 09:25 [facility] Past Medical History Medical History CAD (coronary artery disease) Chronic GERD Hiatal hernia High cholesterol HTN (hypertension) IDDM (insulin dependent diabetes mellitus) Multilevel spondylosis Family History Family History Father Enlarged heart Mother Cancer Surgical History Surgical History History of esophagogastroduodenoscopy (EGD) History of surgery Hx of colonoscopy S/P cardiac cath Social History Social History Smoking Status: Current every day smoker Tobacco Type: Cigarette Cigarettes Per Day: 10 Years Smoked: 60 Use of substances other than those prescribed or required for medical reasons: No Are you DNR?: No Advance Directives: No Advance Directives Information Provided: No Advance Directives on File: No Meds Allergies Allergy/AdvReac Type Severity Reaction Status Date / Time No Known Allergies Allergy Verified 08/14/20 11:43 [No Known Allergies*] Home Medications Medication Instructions Recorded Confirmed Last Taken Type aspirin 81 mg tablet,delayed 81 mg PO DAILY 07/22/20 09/19/20 Unknown History release lisinopril 20 mg tablet 20 mg PO DAILY 07/22/20 09/19/20 Unknown History metformin 500 mg tablet 500 mg PO BID 07/22/20 09/19/20 Unknown History omeprazole 20 mg capsule,delayed 20 mg PO QAM 07/22/20 09/25/20 09/25/20 History release ropinirole 2 mg tablet 2 mg PO BEDTIME 07/22/20 09/19/20 Unknown History insulin glargine [Lantus U-100 30 unit SUBCUT BID 09/19/20 09/19/20 Unknown History Insulin] Exam Airway Mallampati Class: II TM Dist: >3cm Neck ROM: Full Assessment and Plan Assessment Anesthesia Assessment: Anesthesia Plan Discussed and Chart Reviewed Final Anesthetic Review NPO: Yes ASA Class: III Final Preanesthetic Review: No Changes in Pt Med Stat, Meds/Allgs Chart Reviewed, Consent Obtained/Reviewed and Anes Risks/Benef Reviewed Patient Risk: Intermediate Procedure Risk: Low Assessment/Block/Sedation in SS: Assess/Block/Sedation-SS Anesthetic Plan Anesthetic Plan: MAC: Disposition: Standard PACU
[2020-09-25 08:45] VITALS: BP 138/74; PULSE 79; RESP 18; TEMP 36.3; O2SAT 96; BMI 28.1
[2020-09-25 09:03] LABS: Glucose, Whole Blood 214 mg/dL (60-115)
[2020-09-25 10:24] VITALS: BP 116/71; PULSE 83; RESP 20; TEMP 36.3; O2SAT 97
--- NOTE | 2020-09-25 10:24 | P.BOP_ITS ---
Brief Operative Note Date of Service: 09/25/20 Pre-op diagnosis: Screening Post-op diagnosis: other (Colon polyps) Procedure: Colonoscopy to the cecum with biopsies and removal of polyps Surgeon: Aroldo Mejia Anesthesia: MAC Was an [employer] used for this Procedure?: No Estimated blood loss (mL): 4.0 Pathology: other (A. Polyp at 20cm B Transverse colon polyp) Condition: stable Disposition: PACU
[2020-09-25 10:39] VITALS: BP 119/62; PULSE 71; O2SAT 97
--- NOTE | 2020-09-25 15:39 | OP_ITS ---
SURGEON: Aroldo Mejia MD INDICATIONS: The patient presents for followup of colorectal cancer screening and personal history of tubular adenoma of the colon. Full consent has been obtained from him for this, including risks of bleeding and perforation. PREOPERATIVE DIAGNOSIS: POSTOPERATIVE DIAGNOSIS: PROCEDURE PERFORMED: Colonoscopy to the cecum with biopsy and removal of polyps. ESTIMATED BLOOD LOSS: COMPLICATIONS: ANESTHESIA: Monitored anesthesia care. ASSISTANTS: SPECIMENS: PREOPERATIVE DIAGNOSES: Colorectal cancer screening and personal history of tubular adenoma of the colon. POSTOPERATIVE DIAGNOSES: Colorectal cancer screening and personal history of tubular adenoma of the colon, small colon polyps, diverticulosis, internal hemorrhoids. DESCRIPTION OF PROCEDURE: The patient was placed in the left lateral decubitus position. The digital rectal exam revealed no abnormalities. The Olympus video pediatric colonoscope was entered into the rectum and advanced easily to the cecum. Once in the cecum, I did identify normal-appearing cecal pouch with appendiceal orifice and a normal-appearing ileocecal valve. The entire cecum and ileocecal valve appeared normal. The scope was slowly withdrawn assessing all mucosal surfaces carefully. Preparation was excellent. In the transverse colon and at 20 cm, were flat less than 5 mm polyps, which were each biopsied and completely removed with cold biopsy forceps. I did not visualize any other polyps, colitis, nor angiodysplasias. There was a mild amount of sigmoid diverticulosis. In the rectum, scope was retroflexed visualizing internal hemorrhoids, but no other pathology. The rectal mucosa appeared normal. The scope was straightened and withdrawn from the patient. He tolerated the procedure well and was returned to the recovery area in stable condition. IMPRESSION: 1. Small colon polyps, status post biopsy and removal. 2. Diverticulosis. 3. Internal hemorrhoids. PLAN: The results of the biopsies will be checked. Given these minimal findings and his age, I do not think he will need any further screening colonoscopies in the future. He was advised to resume his aspirin by tomorrow. MD JORGE Higginbotham/MERCED / [id number]
--- NOTE | 2020-09-25 16:07 | PC.NURSE ---
1040 MONITORS AND IVF DCD ASST OOB CH STEADY , IV DCD DRESSED SELF AT BS CALL COTTON IN REACH, PLAN AMB TO DC
== END 2020-09-25 11:40 | disposition home or self-care (01) ==
PROVIDERS: PCP Internal Medicine; Visit Provider Internal Medicine
PROC: 0DJD8ZZ Inspection of Lower Intestinal Tract, Via Natural or Artificial Opening Endoscopic (ICD-10-PCS; CPT 45378; principal; 2020-09-25 09:20)
DX: Z12.11 Encounter for screening for malignant neoplasm of colon (principal); Z86.010 Personal history of colon polyps; D12.3 Benign neoplasm of transverse colon; D12.5 Benign neoplasm of sigmoid colon; K57.30 Diverticulosis of large intestine without perforation or abscess without bleeding; K64.8 Other hemorrhoids; I10 Essential (primary) hypertension; E11.9 Type 2 diabetes mellitus without complications; Z79.899 Other long term (current) drug therapy; Z79.4 Long term (current) use of insulin; Z79.82 Long term (current) use of aspirin; F17.210 Nicotine dependence, cigarettes, uncomplicated
CPT/HCPCS: 45380; 82947; 88305

== ENCOUNTER → 2020-11-14 12:57 | Outpatient (BNVA) | payer MEDICARE, SELFPAY | PROVIDERS: PCP Internal Medicine; Referring Provider Internal Medicine; Visit Provider Internal Medicine Cardiovascular Disease | DX: I25.10 Atherosclerotic heart disease of native coronary artery without angina pectoris (principal); I73.9 Peripheral vascular disease, unspecified; E78.00 Pure hypercholesterolemia, unspecified; I10 Essential (primary) hypertension; E11.9 Type 2 diabetes mellitus without complications; F17.210 Nicotine dependence, cigarettes, uncomplicated; Z79.84 Long term (current) use of oral hypoglycemic drugs; Z79.899 Other long term (current) drug therapy | CPT/HCPCS: 99212 ==

== ENCOUNTER 2020-11-19 12:09 | Outpatient (REF) | payer MEDICARE, SELFPAY ==
[2020-11-19 13:41] LABS: Basophils Percent Auto 0.5 % (0-2); Eosinophils Absolute Auto 0.1 X10*3/uL (0.0-0.4); Eosinophils Percent Auto 0.9 % (0-4); Hematocrit 41.3 % (42-52); Hemoglobin 13.3 g/dl (14.0-18.0); Imm Gran Abs Auto 0.09 X10*3/uL (0.00-0.03); Imm Gran Pct Auto 1.1 % (0.0-0.4); Lymphocytes Absolute Auto 1.5 X10*3/uL (1.2-4.9); Lymphocytes Percent Auto 18.9 % (20-40); MANUAL DIFF FLAG SCAN; Mean Corpuscular HGB Conc 32.2 g/dl (31.0-36.0); Mean Corpuscular Hemoglobin 30.5 pg (27.0-33.0); Mean Corpuscular Volume 94.7 fL (80-98); Mean Platelet Volume 11.3 fL (9.4-12.4); Monocytes Absolute Auto 1.8 X10*3/uL (0.1-1.2); Monocytes Percent Auto 21.6 % (2-11); Neutrophils Absolute Auto 4.6 X10*3/uL (2.0-8.3); Platelet Count 285 X10*3/uL (160-400); Red Blood Count 4.36 X10*6/uL (4.60-5.80); Red Cell Distribution Width 14.1 % (11.0-16.0); SCAN SMEAR FLAG 1; White Blood Count 8.1 X10*3/uL (4.8-10.8)
[2020-11-19 13:49] LABS: Estimated Average Glucose 209 mg/dL; Hemoglobin A1c % 8.9 %
[2020-11-19 14:04] LABS: Creatinine Urine 164.47 mg/dL; Microalbum/Creatinine Ratio Ur 160.5 ug/mg cr
[2020-11-19 14:14] LABS: Alanine Aminotransferase 19 U/L (0-40); Albumin Level 4.4 g/dL (3.5-5.0); Alkaline Phosphatase 96 U/L (39-117); Anion Gap 15 (12-20); Aspartate Amino Transferase 20 U/L (5-37); Bilirubin Total 0.6 mg/dL (0.0-1.0); Blood Urea Nitrogen 18 mg/dL (9-16); Calcium 9.2 mg/dL (8.4-10.2); Carbon Dioxide 25 mmol/L (22-29); Chloride 108 mmol/L (96-108); Estimated Glomerular Filt Rate > 60; Glucose Random 168 mg/dL (60-115); Potassium 5.3 mmol/L (3.3-5.1); Sodium 143 mmol/L (135-145); Total Protein 6.6 g/dL (6.5-8.0)
[2020-11-19 14:17] LABS: SLIDE REVIEW VERIFIED
== END 2020-11-19 12:10 | disposition home or self-care (01) ==
LOC: HO.10HDL 12:09
PROVIDERS: Visit Provider Internal Medicine
DX: E11.9 Type 2 diabetes mellitus without complications (principal); I10 Essential (primary) hypertension; I25.10 Atherosclerotic heart disease of native coronary artery without angina pectoris; I73.9 Peripheral vascular disease, unspecified; G25.81 Restless legs syndrome
CPT/HCPCS: 36415; 80053; 82043; 83036; 85025

== ENCOUNTER 2021-02-19 13:23 | Outpatient (REF) | payer OTHER, SELFPAY ==
--- NOTE | ~2021-02-19 | US_ITS ---
EXAMINATION: NONINVASIVE ASSESSMENT OF THE ARTERIES OF BOTH LOWER EXTREMITIES INCLUDING PVR EXAM AND BILATERAL LOWER EXTREMITY DUPLEX CLINICAL INFORMATION: Peripheral vascular disease COMPARISON: Ultrasound 08/21/2020 TECHNIQUE: Ankle pulse volume recordings, ankle pressure measurements and ankle brachial indices were obtained of the lower extremity arterial system bilaterally in addition to duplex Doppler techniques with wave form analysis and measurement of velocities in the common femoral, profunda femoral, superficial femoral, popliteal, tibial and peroneal arteries. The study was performed only at rest. FINDINGS: RIGHT LEG 1. Right Ankle-Brachial Index: 1.06 (higher of the DP/PT) >0.97-1.25 = normal - no significant arterial disease 0.75-0.96 = mild peripheral arterial disease 0.5-0.74 = moderate peripheral arterial disease <0.50 = severe peripheral arterial disease <0.30 = critical arterial disease 2. Segmental Pressures (mmHg): Brachial: 159 Ankle: PT 156, DP 169 3. PVR Waveforms: Ankle: Normal 4. Direct Duplex: Common femoral artery: 159 cm/s, Multiphasic Profunda femoris artery: 116 cm/s, Multiphasic Superficial femoral artery (proximal): 95.6 cm/s, Multiphasic Superficial femoral artery (mid): 84.4 cm/s, Multiphasic Superficial femoral artery (distal): 130 cm/s, Multiphasic Proximal Popliteal artery: 227 cm/s, Multiphasic Distal popliteal artery: 60.1 cm/s, Multiphasic Proximal posterior tibial artery: 32.8 cm/s, Multiphasic Mid posterior tibial artery: 31.7 cm/s, multiphasic Peroneal artery: 45.7 cm/s, Multiphasic LEFT LE. Left Ankle-Brachial Index: 1.05 (higher of the DP/PT) >0.97-1.25 = normal - no significant arterial disease 0.75-0.96 = mild peripheral arterial disease 0.5-0.74 = moderate peripheral arterial disease <0.50 = severe peripheral arterial disease <0.30 = critical arterial disease 2. Segmental Pressures: Brachial: 131 Ankle: PT 167, DP 166 3. PVR Waveforms: Ankle: Normal 4. Direct Duplex: Common femoral artery: 130 cm/s, Multiphasic Profunda femoris artery: 194 cm/s, Multiphasic Superficial femoral artery (proximal): 136 cm/s, Multiphasic Superficial femoral artery (mid): 142 cm/s, Multiphasic Superficial femoral artery (distal): 140 cm/s, Multiphasic Proximal Popliteal artery: 164 cm/s, Multiphasic Distal popliteal artery: 93.8 cm/s, Multiphasic Proximal posterior tibial artery: 31.2 cm/s, monophasic Distal posterior tibial artery: 39.3 cm/s, multiphasic Peroneal artery: 51.1 cm/s, Multiphasic US/US arterial duplex LE BI IMPRESSION: Right PHILIPP 1.06. Normal right lower extremity PVR. There is multifocal plaque visualized though there is preservation of multiphasic flow throughout. There is elevated velocity within the distal femoral and proximal popliteal artery which may be suggestive of femoropopliteal disease. Left PHILIPP 1.05. Normal left lower extremity PVR. Multifocal plaque is visualized. There is monophasic flow within the proximal posterior tibial artery and elevated flow velocity within the proximal popliteal which may suggest popliteal stenosis.
== END 2021-02-19 13:24 | disposition home or self-care (01) ==
LOC: HO.US 13:23
PROVIDERS: PCP Surgery Vascular Surgery; Visit Provider Surgery Vascular Surgery
DX: I70.213 Atherosclerosis of native arteries of extremities with intermittent claudication, bilateral legs (principal)
CPT/HCPCS: 93923; 93925

== ENCOUNTER → 2021-02-27 11:13 | Outpatient (BNVA) | payer OTHER, SELFPAY | PROVIDERS: PCP Surgery Vascular Surgery; Referring Provider Internal Medicine; Visit Provider Surgery Vascular Surgery ==

== ENCOUNTER → 2021-05-06 14:58 | Outpatient (BNVA) | payer OTHER, SELFPAY | PROVIDERS: PCP Surgery Vascular Surgery; Referring Provider Surgery Vascular Surgery; Visit Provider Internal Medicine Cardiovascular Disease ==

== ENCOUNTER 2021-05-20 12:17 | Outpatient (REF) | payer MEDICARE, SELFPAY ==
[2021-05-20 15:06] LABS: Estimated Average Glucose 237 mg/dL; Hemoglobin A1c % 9.9 %
[2021-05-20 15:33] LABS: Alanine Aminotransferase 38 U/L (0-40); Albumin Level 4.2 g/dL (3.5-5.0); Alkaline Phosphatase 108 U/L (39-117); Anion Gap 15 (12-20); Aspartate Amino Transferase 29 U/L (5-37); Bilirubin Total 0.7 mg/dL (0.0-1.0); Blood Urea Nitrogen 15 mg/dL (9-16); Calcium 9.8 mg/dL (8.4-10.2); Carbon Dioxide 28 mmol/L (22-29); Chloride 103 mmol/L (96-108); Estimated Glomerular Filt Rate > 60; Glucose Random 255 mg/dL (60-115); Potassium 5.6 mmol/L (3.3-5.1); Sodium 140 mmol/L (135-145); Total Protein 6.6 g/dL (6.5-8.0)
== END 2021-05-20 12:18 | disposition home or self-care (01) ==
LOC: HO.10HDL 12:17
PROVIDERS: Visit Provider Internal Medicine
DX: E11.9 Type 2 diabetes mellitus without complications (principal); J44.9 Chronic obstructive pulmonary disease, unspecified; I10 Essential (primary) hypertension; I25.10 Atherosclerotic heart disease of native coronary artery without angina pectoris
CPT/HCPCS: 36415; 80053; 83036

== ENCOUNTER 2021-08-18 12:10 | Outpatient (REF) | payer MEDICARE, SELFPAY ==
[2021-08-18 12:23] LABS: MANUAL DIFF FLAG NO
[2021-08-18 12:46] LABS: Estimated Average Glucose 197 mg/dL; Hemoglobin A1c % 8.5 %
[2021-08-18 12:47] LABS: Basophils Percent Auto 0.3 % (0-2); Eosinophils Absolute Auto 0.1 X10*3/uL (0.0-0.4); Eosinophils Percent Auto 0.8 % (0-4); Hematocrit 42.4 % (42.0-52.0); Hemoglobin 13.2 g/dl (14.0-18.0); Imm Gran Abs Auto 0.06 X10*3/uL (0.00-0.03); Imm Gran Pct Auto 0.8 % (0.0-0.4); Lymphocytes Absolute Auto 1.8 X10*3/uL (1.2-4.9); Lymphocytes Percent Auto 24.7 % (20-40); Mean Corpuscular HGB Conc 31.1 g/dl (31.0-36.0); Mean Corpuscular Hemoglobin 29.8 pg (27.0-33.0); Mean Corpuscular Volume 95.7 fL (80.0-98.0); Mean Platelet Volume 10.6 fL (9.4-12.4); Monocytes Absolute Auto 1.3 X10*3/uL (0.1-1.2); Monocytes Percent Auto 17.9 % (2-11); Neutrophils Absolute Auto 4.1 x10*3/uL (2.0-8.3); Neutrophils Percent Auto 55.5 % (45-73); Platelet Count 298 X10*3/uL (160-400); Red Blood Count 4.43 X10*6/uL (4.60-5.80); Red Cell Distribution Width 13.9 % (11.0-16.0); White Blood Count 7.4 X10*3/uL (4.8-10.8)
[2021-08-18 13:13] LABS: Alanine Aminotransferase 32 U/L (0-40); Albumin Level 4.5 g/dL (3.5-5.0); Alkaline Phosphatase 101 U/L (39-117); Anion Gap 16 (12-20); Aspartate Amino Transferase 26 U/L (5-37); Bilirubin Total 0.7 mg/dL (0.0-1.0); Blood Urea Nitrogen 15 mg/dL (9-16); Calcium 9.5 mg/dL (8.4-10.2); Carbon Dioxide 23 mmol/L (22-29); Chloride 105 mmol/L (96-108); Estimated Glomerular Filt Rate > 60; Glucose Random 303 mg/dL (60-115); Potassium 5.8 mmol/L (3.3-5.1); Sodium 138 mmol/L (135-145); Total Protein 6.8 g/dL (6.5-8.0)
[2021-08-18 14:44] LABS: Creatinine Urine 89.74 mg/dL
[2021-08-18 14:56] LABS: Microalbum/Creatinine Ratio Ur 647.4 ug/mg cr
== END 2021-08-18 12:11 | disposition home or self-care (01) ==
LOC: HO.LAB 12:10
PROVIDERS: PCP Internal Medicine; Visit Provider Internal Medicine
DX: E11.9 Type 2 diabetes mellitus without complications (principal); J44.9 Chronic obstructive pulmonary disease, unspecified; I25.10 Atherosclerotic heart disease of native coronary artery without angina pectoris; I48.0 Paroxysmal atrial fibrillation
CPT/HCPCS: 36415; 80053; 82043; 83036; 85025

== ENCOUNTER 2021-09-01 13:57 | Outpatient (REF) | payer MEDICARE, SELFPAY ==
--- NOTE | ~2021-09-01 | US_ITS ---
EXAMINATION: NONINVASIVE ASSESSMENT OF THE ARTERIES OF BOTH LOWER EXTREMITIES WITH PVR EXAM AND BILATERAL LOWER EXTREMITY DUPLEX CLINICAL INFORMATION: Peripheral vascular disease. TECHNIQUE: Ankle pulse volume recordings, ankle pressure measurements and ankle-brachial indices were obtained of the lower extremity arterial system bilaterally. Additionally, duplex Doppler techniques were used with wave form analysis and measurement of velocities in the common femoral, profunda femoral, superficial femoral, popliteal and tibial arteries. The study was performed only at rest. COMPARISON: 02/19/2021. FINDINGS: ANKLE-BRACHIAL INDEX: Right: 1.12 Left: 0.93. ANKLE PVR WAVEFORM: Right: Normal. Left: Normal. DIRECT DUPLEX DOPPLER FINDINGS: RIGHT LEG: Common femoral artery: 155 cm/s, diastolic flow reversal: Yes. Profunda femoris artery: 131 cm/s, diastolic flow reversal: Yes. Superficial femoral artery (proximal): 74.3 cm/s, diastolic flow reversal: Yes. Superficial femoral artery (mid): 252 cm/s, diastolic flow reversal: Yes. Superficial femoral artery (distal): 131 cm/s, diastolic flow reversal: Yes. Popliteal artery: 210 cm/s, diastolic flow reversal: Yes. Proximal Posterior tibial artery: 35.4 cm/s, diastolic flow reversal: Yes. Proximal Peroneal artery: 57.1 cm/s, diastolic flow reversal: Yes. Additional: Flow is not definitely visualized within the right mid ORIENTATION & MOBILITY SPECIALIST suggesting focal occlusion. There is minimal flow within the distal ORIENTATION & MOBILITY SPECIALIST, likely via collaterals. LEFT LEG: Common femoral artery: 132 cm/s, diastolic flow reversal: Yes. Profunda femoris artery: 270 cm/s, diastolic flow reversal: Yes. Superficial femoral artery (proximal): 149 cm/s, diastolic flow reversal: Yes. Superficial femoral artery (mid): 233 cm/s, diastolic flow reversal: Yes. Superficial femoral artery (distal): 93.3 cm/s, diastolic flow reversal: Yes. Popliteal artery: 167 cm/s, diastolic flow reversal: Yes. Proximal posterior tibial artery: 82.9 cm/s, diastolic flow reversal: Yes. Peroneal artery: 62.6 cm/s, diastolic flow reversal: Yes. Additional: There is reversal of flow within the distal posterior tibial artery. A collateral is identified arising from the mid posterior tibial artery. Findings suggest distal occlusion. US/US PHILIPP complete IMPRESSION: Right leg: PHILIPP 1.12. Duplex reveals a hemodynamically significant stenosis of the mid SFA which appears similar to prior exams. Multifocal plaque is demonstrated throughout. There is a moderate hemodynamically significant stenosis of the popliteal artery, similar to prior. Flow is not visualized within the mid right ORIENTATION & MOBILITY SPECIALIST suggesting focal occlusion. There is minimal flow within the distal ORIENTATION & MOBILITY SPECIALIST, most likely via a collateral. Left leg: PHILIPP 0.93. There is moderate stenosis of the proximal profunda femoris artery and mid SFA. There is also reversal of flow within the distal posterior tibial artery as well as a collateral arising from the mid ORIENTATION & MOBILITY SPECIALIST. PHILIPP Reference: - >0.97-1.25 = normal - no significant arterial disease. - 0.75-0.96 = mild peripheral arterial disease. - 0.5-0.74 = moderate peripheral arterial disease. - <0.50 = severe peripheral arterial disease.
--- NOTE | ~2021-09-01 | US_ITS ---
EXAMINATION: NONINVASIVE ASSESSMENT OF THE ARTERIES OF BOTH LOWER EXTREMITIES WITH PVR EXAM AND BILATERAL LOWER EXTREMITY DUPLEX CLINICAL INFORMATION: Peripheral vascular disease. TECHNIQUE: Ankle pulse volume recordings, ankle pressure measurements and ankle-brachial indices were obtained of the lower extremity arterial system bilaterally. Additionally, duplex Doppler techniques were used with wave form analysis and measurement of velocities in the common femoral, profunda femoral, superficial femoral, popliteal and tibial arteries. The study was performed only at rest. COMPARISON: 02/19/2021. FINDINGS: ANKLE-BRACHIAL INDEX: Right: 1.12 Left: 0.93. ANKLE PVR WAVEFORM: Right: Normal. Left: Normal. DIRECT DUPLEX DOPPLER FINDINGS: RIGHT LEG: Common femoral artery: 155 cm/s, diastolic flow reversal: Yes. Profunda femoris artery: 131 cm/s, diastolic flow reversal: Yes. Superficial femoral artery (proximal): 74.3 cm/s, diastolic flow reversal: Yes. Superficial femoral artery (mid): 252 cm/s, diastolic flow reversal: Yes. Superficial femoral artery (distal): 131 cm/s, diastolic flow reversal: Yes. Popliteal artery: 210 cm/s, diastolic flow reversal: Yes. Proximal Posterior tibial artery: 35.4 cm/s, diastolic flow reversal: Yes. Proximal Peroneal artery: 57.1 cm/s, diastolic flow reversal: Yes. Additional: Flow is not definitely visualized within the right mid FINISHING TUNNEL OPERATOR suggesting focal occlusion. There is minimal flow within the distal FINISHING TUNNEL OPERATOR, likely via collaterals. LEFT LEG: Common femoral artery: 132 cm/s, diastolic flow reversal: Yes. Profunda femoris artery: 270 cm/s, diastolic flow reversal: Yes. Superficial femoral artery (proximal): 149 cm/s, diastolic flow reversal: Yes. Superficial femoral artery (mid): 233 cm/s, diastolic flow reversal: Yes. Superficial femoral artery (distal): 93.3 cm/s, diastolic flow reversal: Yes. Popliteal artery: 167 cm/s, diastolic flow reversal: Yes. Proximal posterior tibial artery: 82.9 cm/s, diastolic flow reversal: Yes. Peroneal artery: 62.6 cm/s, diastolic flow reversal: Yes. Additional: There is reversal of flow within the distal posterior tibial artery. A collateral is identified arising from the mid posterior tibial artery. Findings suggest distal occlusion. US/US arterial duplex LE BI IMPRESSION: Right leg: PHILIPP 1.12. Duplex reveals a hemodynamically significant stenosis of the mid SFA which appears similar to prior exams. Multifocal plaque is demonstrated throughout. There is a moderate hemodynamically significant stenosis of the popliteal artery, similar to prior. Flow is not visualized within the mid right FINISHING TUNNEL OPERATOR suggesting focal occlusion. There is minimal flow within the distal FINISHING TUNNEL OPERATOR, most likely via a collateral. Left leg: PHILIPP 0.93. There is moderate stenosis of the proximal profunda femoris artery and mid SFA. There is also reversal of flow within the distal posterior tibial artery as well as a collateral arising from the mid FINISHING TUNNEL OPERATOR. PHILIPP Reference: - >0.97-1.25 = normal - no significant arterial disease. - 0.75-0.96 = mild peripheral arterial disease. - 0.5-0.74 = moderate peripheral arterial disease. - <0.50 = severe peripheral arterial disease.
== END 2021-09-01 13:58 | disposition home or self-care (01) ==
LOC: HO.US 13:57
PROVIDERS: PCP Internal Medicine; Visit Provider Surgery Vascular Surgery
DX: I73.9 Peripheral vascular disease, unspecified (principal)
CPT/HCPCS: 93923; 93925

== ENCOUNTER → 2021-09-23 12:50 | Outpatient (BNVA) | payer MEDICARE, SELFPAY | PROVIDERS: PCP Internal Medicine; Visit Provider Surgery Vascular Surgery | DX: I73.9 Peripheral vascular disease, unspecified (principal) | CPT/HCPCS: 99212 ==

== ENCOUNTER 2021-11-17 12:28 | Outpatient (REF) | payer MEDICARE, SELFPAY ==
[2021-11-17 13:46] LABS: MANUAL DIFF FLAG NO
[2021-11-17 13:56] LABS: Basophils Percent Auto 0.4 % (0-2); Eosinophils Absolute Auto 0.1 X10*3/uL (0.0-0.4); Eosinophils Percent Auto 1.3 % (0-4); Hematocrit 38.4 % (42.0-52.0); Hemoglobin 13.1 g/dl (14.0-18.0); Imm Gran Abs Auto 0.06 X10*3/uL (0.00-0.03); Imm Gran Pct Auto 0.8 % (0.0-0.4); Lymphocytes Absolute Auto 1.4 X10*3/uL (1.2-4.9); Lymphocytes Percent Auto 17.9 % (20-40); Mean Corpuscular HGB Conc 34.1 g/dl (31.0-36.0); Mean Platelet Volume 11.2 fL (9.4-12.4); Monocytes Absolute Auto 1.4 X10*3/uL (0.1-1.2); Monocytes Percent Auto 18.4 % (2-11); Neutrophils Absolute Auto 4.6 x10*3/uL (2.0-8.3); Neutrophils Percent Auto 61.2 % (45-73); Platelet Count 309 X10*3/uL (160-400); Red Blood Count 4.22 X10*6/uL (4.60-5.80); White Blood Count 7.6 X10*3/uL (4.8-10.8)
[2021-11-17 14:39] LABS: Vitamin B12 974 pg/mL (200-900)
[2021-11-17 14:43] LABS: Alanine Aminotransferase 26 U/L (0-40); Albumin Level 4.2 g/dL (3.5-5.0); Alkaline Phosphatase 98 U/L (39-117); Anion Gap 15 (12-20); Aspartate Amino Transferase 24 U/L (5-37); Bilirubin Total 0.6 mg/dL (0.0-1.0); Blood Urea Nitrogen 17 mg/dL (9-16); Calcium 9.3 mg/dL (8.4-10.2); Carbon Dioxide 23 mmol/L (22-29); Chloride 105 mmol/L (96-108); Estimated Glomerular Filt Rate > 60; Glucose Random 248 mg/dL (60-115); Potassium 5.4 mmol/L (3.3-5.1); Sodium 138 mmol/L (135-145); Total Protein 6.4 g/dL (6.5-8.0)
[2021-11-17 15:38] LABS: Creatinine Urine 105.56 mg/dL; Microalbum/Creatinine Ratio Ur 260.5 ug/mg cr
[2021-11-17 20:17] LABS: Estimated Average Glucose 232 mg/dL; Hemoglobin A1c % 9.7 %
== END 2021-11-17 12:29 | disposition home or self-care (01) ==
LOC: HO.10HDL 12:28
PROVIDERS: Visit Provider Internal Medicine
DX: E11.9 Type 2 diabetes mellitus without complications (principal); I73.9 Peripheral vascular disease, unspecified; I25.10 Atherosclerotic heart disease of native coronary artery without angina pectoris; G35 Multiple sclerosis; I10 Essential (primary) hypertension; G62.9 Polyneuropathy, unspecified
CPT/HCPCS: 36415; 80053; 82043; 82607; 83036; 85025

== ENCOUNTER 2022-03-27 12:10 | Outpatient (REF) | payer MEDICARE, SELFPAY ==
[2022-03-27 14:08] LABS: Anion Gap 19 (12-20); Blood Urea Nitrogen 15 mg/dL (9-16); Calcium 9.5 mg/dL (8.4-10.2); Carbon Dioxide 25 mmol/L (22-29); Chloride 103 mmol/L (96-108); Estimated Glomerular Filt Rate > 60; Glucose Random 184 mg/dL (60-115); Potassium 5.6 mmol/L (3.3-5.1); Sodium 141 mmol/L (135-145)
[2022-03-27 15:03] LABS: Estimated Average Glucose 240 mg/dL
== END 2022-03-27 12:11 | disposition home or self-care (01) ==
LOC: HO.10HDL 12:10
PROVIDERS: Visit Provider Internal Medicine
DX: E11.9 Type 2 diabetes mellitus without complications (principal); I10 Essential (primary) hypertension
CPT/HCPCS: 36415; 80048; 83036

== ENCOUNTER 2022-03-31 13:14 | Outpatient (REF) | payer MEDICARE, SELFPAY ==
[2022-03-31 16:10] LABS: Anion Gap 20 (12-20); Carbon Dioxide 23 mmol/L (22-29); Chloride 103 mmol/L (96-108); Potassium 5.6 mmol/L (3.3-5.1); Sodium 140 mmol/L (135-145)
== END 2022-03-31 13:15 | disposition home or self-care (01) ==
LOC: HO.LAB 13:14
PROVIDERS: PCP Internal Medicine; Visit Provider Internal Medicine
DX: Z13.89 Encounter for screening for other disorder (principal)
CPT/HCPCS: 36415; 80051

== ENCOUNTER 2022-04-10 11:30 | Outpatient (REF) | payer MEDICARE, SELFPAY ==
[2022-04-10 14:06] LABS: Anion Gap 16 (12-20); Blood Urea Nitrogen 21 mg/dL (9-16); Calcium 9.7 mg/dL (8.4-10.2); Carbon Dioxide 28 mmol/L (22-29); Chloride 103 mmol/L (96-108); Estimated Glomerular Filt Rate > 60; Glucose Random 205 mg/dL (60-115); Potassium 5.2 mmol/L (3.3-5.1); Sodium 142 mmol/L (135-145)
== END 2022-04-10 11:31 | disposition home or self-care (01) ==
LOC: HO.10HDL 11:30
PROVIDERS: Visit Provider Internal Medicine
DX: E87.5 Hyperkalemia (principal)
CPT/HCPCS: 36415; 80048

== ENCOUNTER → 2022-04-27 12:47 | Outpatient (REF) | payer MEDICARE, SELFPAY ==
--- NOTE | 2022-04-27 12:50 | CA_ITS ---
Transthoracic Echocardiogram Patient (Last, First, Middle): Zachery Mckeon L Gender: Male Date of : 1945 Age: 76 Procedure Date: 04/27/2022 Procedure Type: Transthoracic Echocardiogram Location: OP Height: 172.72 cm Weight: 73.48 kg BSA: 1.87 m2 Heart Rate: 73 bpm BP: 130 / 60 mmHg Liquor Department Manager: ENZO Referring MD: Rosas Juan MD Aeronautical Test Engineer: Rosas Juan MD Symptoms: I35.0 - Nonrheumatic aortic (valve) stenosis Study Quality: Fair/Contrast ECG Rhythm: Sinus Conclusions: - 1. Normal LV systolic function with mild LVH with impaired relaxation filling pattern 2. Moderate aortic stenosis with mean gradient of 18 mmHg 3. No gross pericardial effusion Findings Procedure Information Contrast agent, definity, is being given per protocol without apparent complications. Left Ventricle Normal left ventricular size and systolic function. There is mildly increased left ventricular wall thickness. The visually estimated ejection fraction is between 55-60%. Spectral Doppler is indicative of an impaired relaxation filling pattern. E/E prime ratio is between 8 and 15 consistent with indeterminate filling pressures. Wall Motion Rest Echo Findings The basal inferior and apical septum segments are hypokinetic. All other scored wall segments showed normal motion. Right Ventricle Normal right ventricular cavity size and systolic function. Atria The left atrium is normal in size. There is lipomatous hypertrophy of the interatrial septum. There is no evidence of interatrial shunt. The right atrium is normal in size. Aortic Valve There is moderate calcification of the aortic valve. There is moderate aortic valve stenosis. The peak aortic gradient is 30 mmHg.The mean gradient is 18 mmHg. There is no aortic valve regurgitation. Mitral Valve Likely normal mitral valve structure and function. There is trace mitral valve regurgitation. There is no mitral valve stenosis. Pulmonic Valve The pulmonic valve was not well visualized. Tricuspid Valve Likely normal tricuspid valve structure and function. Tricuspid regurgitation envelope is inadequate for calculation of right ventricular systolic pressure. Normal right atrial pressure. Great Vessels All visible segments of the aorta are normal in size. The pulmonary artery was not well visualized. Venous The inferior vena cava is normal in size and collapses greater than 50% with inspiration. Pericardium/Pleural There is no evidence of pericardial effusion. Prior Study Comparison Changes noted compared to prior study dated: 07/29/2020. aortic stenosis is in moderate severity range Measurements 2D Linear Measurements IVSd: 1.24 0.6-0.9/0.6-1.0 cm LVIDd: 4.37 3.9-5.3/4.2-5.9 cm LVIDd Index: 2.34 2.4-3.2/2.2-3.1 cm/m2 LVIDs: 3.06 2.0-3.6 cm LVPWd: 1.20 0.7-1.1 cm LA Diam: 4.00 2.7-3.8/3.0-4.0 cm LAIDs Index: 2.14 1.5-2.3 cm/m2 LV Mass: 241.66 67-162/88-224 g LV Mass Index: 129.23 43-95/49-115 g/m2 LVOT Diam: 1.90 3.0+(-)1.3 cm 2D Systolic Function EF 4C: 42.40 >55% EF 2C: 57.20 >55% Mitral Valve MV Pk E: 0.78 MV PK A: 0.98 MV Decel Time: 248.00 E/A: 0.80 E'Lateral: 9.03 E'Medial: 5.87 E/E' Med: 13.20 E/E' Lat: 8.60 PHT: 73.00 MVA PHT: 3.01 Decel [place]: 3.12 Aortic Valve AoV Pk Pa: 2.72 AoV Mn Pa: 2.01 AoV VTI: 0.60 AoV Pk Grad: 30.00 Aov Mn Grad: 18.00 ANTOINETTE Cont.VTI: 0.98 LVOT LVOT Pk Pa: 0.88 LVOT Mn Pa: 0.68 LVOT VTI: 0.21 LVOT Pk Grad: 3.00 LVOT Mn Grad: 2.00 LVOT Diam: 1.90 LVOT Area: 2.84 Diastolic Function MV Pk E: 0.78 MV Pk A: 0.98 E/A: 0.80 E'Medial: 5.87 E/E' Med: 13.20 E' Laterial: 9.03 E/E' Lat: 8.60 Right Ventricle TAPSE (mm): 21.90 TVS' Pa: 13.30 Tricuspid Valve RA Press: 3.00 Great Vessels Aorta Sinus of Valsalva: 3.50 2.0-3.5 cm Ao Asc: 3.20 2.1-3.4 cm Pulmonary Valve PV Pk Pa: 1.24 Peak PV Grad: 6.00 Updated in Other Vendor System with Status of Final Rosas Juan MD electronically signed on 04/30/2022 5:09:02 PM with status of Final
== END ==
LOC: HO.CARD 12:47
PROVIDERS: Visit Provider Internal Medicine Cardiovascular Disease
DX: I35.0 Nonrheumatic aortic (valve) stenosis (principal)
CPT/HCPCS: 93306; Q9957

== ENCOUNTER → 2022-05-04 14:30 | Outpatient (BNVA) | payer MEDICARE, SELFPAY | PROVIDERS: PCP Internal Medicine; Visit Provider Internal Medicine Cardiovascular Disease | DX: I25.10 Atherosclerotic heart disease of native coronary artery without angina pectoris (principal); I35.0 Nonrheumatic aortic (valve) stenosis; I10 Essential (primary) hypertension; E11.9 Type 2 diabetes mellitus without complications; E78.00 Pure hypercholesterolemia, unspecified; Z79.4 Long term (current) use of insulin; Z98.890 Other specified postprocedural states | CPT/HCPCS: 93005; 99212 ==

== ENCOUNTER 2022-05-06 10:01 | Outpatient (REF) | payer MEDICARE, SELFPAY ==
[2022-05-06 11:19] LABS: Cholesterol 171 mg/dL; HDL Cholesterol 56 mg/dL; LDL Cholesterol Calculated 102 mg/dl; Triglycerides 67 mg/dL
== END 2022-05-06 10:02 | disposition home or self-care (01) ==
LOC: HO.LAB 10:01
PROVIDERS: PCP Internal Medicine; Visit Provider Internal Medicine Cardiovascular Disease
DX: I25.10 Atherosclerotic heart disease of native coronary artery without angina pectoris (principal)
CPT/HCPCS: 36415; 80061

== ENCOUNTER 2022-05-13 13:54 | Outpatient (REF) | payer MEDICARE, SELFPAY ==
[2022-05-13 15:49] LABS: Alanine Aminotransferase 34 U/L (0-40); Albumin Level 4.4 g/dL (3.5-5.0); Alkaline Phosphatase 116 U/L (39-117); Anion Gap 15 (12-20); Aspartate Amino Transferase 34 U/L (5-37); Bilirubin Total 0.5 mg/dL (0.0-1.0); Blood Urea Nitrogen 18 mg/dL (9-16); Calcium 9.6 mg/dL (8.4-10.2); Carbon Dioxide 27 mmol/L (22-29); Chloride 104 mmol/L (96-108); Estimated Glomerular Filt Rate > 60; Glucose Random 351 mg/dL (60-115); Potassium 5.8 mmol/L (3.3-5.1); Sodium 140 mmol/L (135-145); Total Protein 6.4 g/dL (6.5-8.0)
[2022-05-13 16:02] LABS: Estimated Average Glucose 232 mg/dL; Hemoglobin A1c % 9.7 %
== END 2022-05-13 13:55 | disposition home or self-care (01) ==
LOC: HO.LAB 13:54
PROVIDERS: PCP Internal Medicine; Visit Provider Internal Medicine
DX: I12.9 Hypertensive chronic kidney disease with stage 1 through stage 4 chronic kidney disease, or unspecified chronic kidney disease (principal); E11.22 Type 2 diabetes mellitus with diabetic chronic kidney disease; N18.9 Chronic kidney disease, unspecified
CPT/HCPCS: 36415; 80053; 83036

== ENCOUNTER 2022-07-15 10:24 | Outpatient (REF) | payer MEDICARE, SELFPAY ==
[2022-07-15 11:53] LABS: Cholesterol 138 mg/dL; HDL Cholesterol 45 mg/dL; LDL Cholesterol Calculated 83 mg/dl; Triglycerides 53 mg/dL
== END 2022-07-15 10:25 | disposition home or self-care (01) ==
LOC: HO.LAB 10:24
PROVIDERS: PCP Internal Medicine; Visit Provider Internal Medicine Cardiovascular Disease
DX: I25.10 Atherosclerotic heart disease of native coronary artery without angina pectoris (principal); I73.9 Peripheral vascular disease, unspecified; E78.5 Hyperlipidemia, unspecified
CPT/HCPCS: 36415; 80061

== ENCOUNTER 2022-08-05 14:54 | Outpatient (REF) | payer MEDICARE, SELFPAY ==
[2022-08-05 15:10] LABS: MANUAL DIFF FLAG NO
[2022-08-05 15:57] LABS: Basophils Percent Auto 0.3 % (0-2); Eosinophils Absolute Auto 0.1 X10*3/uL (0.0-0.4); Eosinophils Percent Auto 0.9 % (0-4); Hematocrit 40.1 % (42.0-52.0); Hemoglobin 12.9 g/dl (14.0-18.0); Imm Gran Abs Auto 0.11 X10*3/uL (0.00-0.03); Imm Gran Pct Auto 1.2 % (0.0-0.4); Lymphocytes Absolute Auto 1.6 X10*3/uL (1.2-4.9); Lymphocytes Percent Auto 18.2 % (20-40); Mean Corpuscular HGB Conc 32.2 g/dl (31.0-36.0); Mean Corpuscular Hemoglobin 29.7 pg (27.0-33.0); Mean Corpuscular Volume 92.2 fL (80.0-98.0); Mean Platelet Volume 11.1 fL (9.4-12.4); Monocytes Absolute Auto 1.4 X10*3/uL (0.1-1.2); Monocytes Percent Auto 15.5 % (2-11); Neutrophils Absolute Auto 5.7 x10*3/uL (2.0-8.3); Neutrophils Percent Auto 63.9 % (45-73); Platelet Count 344 X10*3/uL (160-400); Red Blood Count 4.35 X10*6/uL (4.60-5.80); Red Cell Distribution Width 14.4 % (11.0-16.0); White Blood Count 8.9 X10*3/uL (4.8-10.8)
[2022-08-05 16:06] LABS: Estimated Average Glucose 278 mg/dL; Hemoglobin A1c % 11.3 %
[2022-08-05 16:22] LABS: Alanine Aminotransferase 114 U/L (0-40); Albumin Level 4.2 g/dL (3.5-5.0); Alkaline Phosphatase 99 U/L (39-117); Anion Gap 18 (12-20); Aspartate Amino Transferase 82 U/L (5-37); Bilirubin Total 0.6 mg/dL (0.0-1.0); Blood Urea Nitrogen 14 mg/dL (9-16); Calcium 9.3 mg/dL (8.4-10.2); Carbon Dioxide 24 mmol/L (22-29); Chloride 102 mmol/L (96-108); Estimated Glomerular Filt Rate > 60; Glucose Random 324 mg/dL (60-115); Sodium 138 mmol/L (135-145); Total Protein 6.1 g/dL (6.5-8.0)
== END 2022-08-05 14:55 | disposition home or self-care (01) ==
LOC: HO.LAB 14:54
PROVIDERS: PCP Internal Medicine; Visit Provider Internal Medicine
DX: I12.9 Hypertensive chronic kidney disease with stage 1 through stage 4 chronic kidney disease, or unspecified chronic kidney disease (principal); E11.22 Type 2 diabetes mellitus with diabetic chronic kidney disease; N18.9 Chronic kidney disease, unspecified
CPT/HCPCS: 36415; 80053; 83036; 85025

== ENCOUNTER 2022-09-14 13:15 | Outpatient (REF) | payer MEDICARE, SELFPAY ==
--- NOTE | ~2022-09-14 | US_ITS ---
EXAMINATION: ANKLE-BRACHIAL INDICES SINGLE LEVEL PULSE VOLUME RECORDING ARTERIAL DUPLEX BILATERAL LEGS CLINICAL INFORMATION: Peripheral vascular disease. COMPARISON: 09/01/2021. TECHNIQUE: Ankle-brachial indices and PVR at the ankle were obtained. Duplex Doppler of the bilateral lower extremity arterial systems was performed. FINDINGS: RIGHT: Ankle-brachial index: 1.11, prior 1.12 PVR: Normal Diffuse atherosclerotic disease. Common femoral: PSV 142 cm/s. Biphasic waveform. Deep femoral: PSV 122 cm/s. Biphasic waveform. Proximal superficial femoral: PSV 84 cm/s. Biphasic waveform. Mid superficial femoral: PSV 324 cm/s. Biphasic waveform. Focal moderate stenosis. Distal superficial femoral: PSV 82 cm/s. Triphasic waveform. Popliteal: PSV 119 cm/s. Biphasic waveform. Posterior tibial: Nearly occluded with trickle reversed flow in the mid and distal segments. Peroneal: PSV 46 cm/s. Biphasic waveform. LEFT: Ankle-brachial index: The DP PHILIPP is inaccurate due to calcification at 1.42, the PT PHILIPP is 0.88, previously 0.93. PVR: Normal Diffuse atherosclerotic disease. Common femoral: PSV 161 cm/s. Biphasic waveform. Deep femoral: PSV 230 cm/s. Biphasic waveform. Mild proximal stenosis. Proximal superficial femoral: PSV 171 cm/s. Biphasic. waveform. Mid superficial femoral: PSV 280 cm/s. Biphasic waveform. Mild focal stenosis. Distal superficial femoral: PSV 107 cm/s. Biphasic waveform. Popliteal: PSV 323 cm/s. Biphasic waveform. Moderate focal stenosis. Posterior tibial: Nearly occluded with reversed flow in the mid and distal segments. Peroneal: PSV 75 cm/s. Biphasic waveform. US/US PHILIPP complete IMPRESSION: Right: No evidence of hemodynamically significant peripheral arterial disease by PHILIPP/PVR. Moderate focal stenosis in the mid superficial femoral artery and occluded posterior tibial artery with some areas of trickle reversed flow. Left: Mild peripheral arterial disease by PHILIPP. Normal PVR. Mild focal stenosis in the mid superficial femoral artery, moderate focal stenosis in the proximal popliteal artery, occluded proximal posterior tibial artery with reversed flow distally.
--- NOTE | ~2022-09-14 | US_ITS ---
EXAMINATION: ANKLE-BRACHIAL INDICES SINGLE LEVEL PULSE VOLUME RECORDING ARTERIAL DUPLEX BILATERAL LEGS CLINICAL INFORMATION: Peripheral vascular disease. COMPARISON: 09/01/2021. TECHNIQUE: Ankle-brachial indices and PVR at the ankle were obtained. Duplex Doppler of the bilateral lower extremity arterial systems was performed. FINDINGS: RIGHT: Ankle-brachial index: 1.11, prior 1.12 PVR: Normal Diffuse atherosclerotic disease. Common femoral: PSV 142 cm/s. Biphasic waveform. Deep femoral: PSV 122 cm/s. Biphasic waveform. Proximal superficial femoral: PSV 84 cm/s. Biphasic waveform. Mid superficial femoral: PSV 324 cm/s. Biphasic waveform. Focal moderate stenosis. Distal superficial femoral: PSV 82 cm/s. Triphasic waveform. Popliteal: PSV 119 cm/s. Biphasic waveform. Posterior tibial: Nearly occluded with trickle reversed flow in the mid and distal segments. Peroneal: PSV 46 cm/s. Biphasic waveform. LEFT: Ankle-brachial index: The DP PHILIPP is inaccurate due to calcification at 1.42, the PT PHILIPP is 0.88, previously 0.93. PVR: Normal Diffuse atherosclerotic disease. Common femoral: PSV 161 cm/s. Biphasic waveform. Deep femoral: PSV 230 cm/s. Biphasic waveform. Mild proximal stenosis. Proximal superficial femoral: PSV 171 cm/s. Biphasic. waveform. Mid superficial femoral: PSV 280 cm/s. Biphasic waveform. Mild focal stenosis. Distal superficial femoral: PSV 107 cm/s. Biphasic waveform. Popliteal: PSV 323 cm/s. Biphasic waveform. Moderate focal stenosis. Posterior tibial: Nearly occluded with reversed flow in the mid and distal segments. Peroneal: PSV 75 cm/s. Biphasic waveform. US/US arterial duplex LE BI IMPRESSION: Right: No evidence of hemodynamically significant peripheral arterial disease by PHILIPP/PVR. Moderate focal stenosis in the mid superficial femoral artery and occluded posterior tibial artery with some areas of trickle reversed flow. Left: Mild peripheral arterial disease by PHILIPP. Normal PVR. Mild focal stenosis in the mid superficial femoral artery, moderate focal stenosis in the proximal popliteal artery, occluded proximal posterior tibial artery with reversed flow distally.
== END 2022-09-14 13:16 | disposition home or self-care (01) ==
LOC: HO.US 13:15
PROVIDERS: PCP Internal Medicine; Visit Provider Surgery Vascular Surgery
DX: I70.213 Atherosclerosis of native arteries of extremities with intermittent claudication, bilateral legs (principal)
CPT/HCPCS: 93923; 93925

== ENCOUNTER → 2022-10-20 14:52 | Outpatient (BNVA) | payer MEDICARE, SELFPAY | PROVIDERS: PCP Internal Medicine; Visit Provider Surgery Vascular Surgery | DX: I73.9 Peripheral vascular disease, unspecified (principal) | CPT/HCPCS: 99212 ==

== ENCOUNTER 2022-11-23 13:13 | Outpatient (REF) | payer MEDICARE, SELFPAY | END 2022-11-23 13:14 | disposition home or self-care (01) | LOC: HO.LAB 13:13 | PROVIDERS: PCP Internal Medicine; Visit Provider Internal Medicine | DX: E11.9 Type 2 diabetes mellitus without complications (principal); I25.10 Atherosclerotic heart disease of native coronary artery without angina pectoris; I10 Essential (primary) hypertension; K21.9 Gastro-esophageal reflux disease without esophagitis | CPT/HCPCS: 36415; 80053; 83036 ==

== ENCOUNTER 2023-02-03 11:14 | Outpatient (REF) | payer MEDICARE, SELFPAY ==
[2023-02-03 13:42] LABS: Anion Gap 12 (12-20); Blood Urea Nitrogen 18 mg/dL (9-16); Calcium 9.5 mg/dL (8.4-10.2); Carbon Dioxide 28 mmol/L (22-29); Chloride 106 mmol/L (96-108); Estimated Glomerular Filt Rate > 60; Glucose Random 225 mg/dL (60-115); Potassium 5.2 mmol/L (3.3-5.1); Sodium 141 mmol/L (135-145)
== END 2023-02-03 11:15 | disposition home or self-care (01) ==
LOC: HO.10HDL 11:14
PROVIDERS: Visit Provider Internal Medicine
DX: E11.9 Type 2 diabetes mellitus without complications (principal); E87.5 Hyperkalemia
CPT/HCPCS: 36415; 80048

== ENCOUNTER → 2023-04-26 12:47 | Outpatient (REF) | payer MEDICARE, SELFPAY ==
--- NOTE | 2023-04-26 12:50 | CA_ITS ---
Transthoracic Echocardiogram Patient (Last, First, Middle): Zachery Mckeon L Gender: Male Date of : 1945 Age: 77 Procedure Date: 04/26/2023 Procedure Type: Transthoracic Echocardiogram Location: OP Height: 172.72 cm Weight: 74.84 kg BSA: 1.88 m2 Heart Rate: bpm BP: 118 / 60 mmHg Office Cashier: Referring MD: Rosas Juan MD Symptoms: I35.0 - Nonrheumatic aortic (valve) stenosis Study Quality: Fair ECG Rhythm: Sinus Conclusions: - The left ventricular systolic function is normal. The calculated ejection fraction is 58% by biplane method. - There is moderately increased left ventricular wall thickness. - The basal inferior segment is akinetic. - There is moderate aortic valve stenosis. Findings Left Ventricle Normal left ventricular cavity size. There is moderately increased left ventricular wall thickness. The left ventricular systolic function is normal. The calculated ejection fraction is 58% by biplane method. There is no evidence of regional wall motion abnormalities. Evidence suggests grade I (mild) diastolic dysfunction. Wall Motion Rest Echo Findings The basal inferior segment is akinetic. Right Ventricle Normal right ventricular cavity size and systolic function. Atria Both atria are normal in size. Aortic Valve There is moderate calcification of the aortic valve. There is moderate aortic valve stenosis. The peak aortic velocity is 2.92 m/s with a calculated peak gradient of 34 mmHg. The mean gradient is 20 mmHg. The aortic valve area is 1.28 cm2. There is trace (trivial) aortic valve regurgitation. Dimensionless index 0.3. Mitral Valve The mitral valve appears normal. There is mild mitral valve regurgitation. There is no mitral valve stenosis. Pulmonic Valve The pulmonic valve is likely normal. Tricuspid Valve Normal tricuspid valve structure. There is trace tricuspid valve regurgitation. There is no evidence of pulmonary hypertension. Great Vessels The asc aorta is normal in size. Venous The inferior vena cava is normal in size and collapses greater than 50% with inspiration. Pericardium/Pleural There is a trivial pericardial effusion. Prior Study Comparison No significant change compared to prior study dated: 04/27/2022. Measurements 2D Linear Measurements IVSd: 1.47 0.6-0.9/0.6-1.0 cm LVIDd: 4.52 3.9-5.3/4.2-5.9 cm LVIDd Index: 2.40 2.4-3.2/2.2-3.1 cm/m2 LVIDs: 3.00 2.0-3.6 cm LVPWd: 1.44 0.7-1.1 cm Ao Root: 3.10 2.1-3.5 cm LA Diam: 4.20 2.7-3.8/3.0-4.0 cm LAIDs Index: 2.23 1.5-2.3 cm/m2 LV Mass: 330.54 67-162/88-224 g LV Mass Index: 175.82 43-95/49-115 g/m2 LVOT Diam: 2.20 3.0+(-)1.3 cm 2D Systolic Function EF 4C: 61.70 >55% EF 2C: 53.40 >55% EF BiP: 57.50 >55% Mitral Valve MV Pk E: 0.70 MV PK A: 1.07 MV Decel Time: 276.00 E/A: 0.70 E'Lateral: 7.51 E'Medial: 5.87 E/E' Med: 12.00 E/E' Lat: 9.40 PHT: 81.00 MVA PHT: 2.72 Decel Sierra: 2.55 Aortic Valve AoV Pk Pa: 2.92 AoV Mn Pa: 2.11 AoV VTI: 0.66 AoV Pk Grad: 34.00 Aov Mn Grad: 20.00 ANTOINETTE Cont.VTI: 1.28 LVOT LVOT Pk Pa: 0.88 LVOT Mn Pa: 0.56 LVOT VTI: 0.22 LVOT Pk Grad: 3.00 LVOT Mn Grad: 2.00 LVOT Diam: 2.20 LVOT Area: 3.80 Diastolic Function MV Pk E: 0.70 MV Pk A: 1.07 E/A: 0.70 E'Medial: 5.87 E/E' Med: 12.00 E' Laterial: 7.51 E/E' Lat: 9.40 Right Ventricle TAPSE (mm): 26.00 TVS' Pa: 13.00 Tricuspid Valve TR Pk Pa: 1.98 TR Pk Grad: 16.00 RA Press: 3.00 RVSP: 19.00 Great Vessels Aorta Ao Root-2D: 3.10 2.0-3.7 cm Ao Asc: 3.10 2.1-3.4 cm Pulmonary Valve PV Pk Pa: 1.33 Peak PV Grad: 7.00 Updated in Other Vendor System with Status of Final Leonidas Ruiz MD electronically signed on 04/27/2023 11:36:41 AM with status of Final
== END ==
LOC: HO.CARD 12:47
PROVIDERS: PCP Internal Medicine; Visit Provider Internal Medicine Cardiovascular Disease
DX: I35.0 Nonrheumatic aortic (valve) stenosis (principal)
CPT/HCPCS: 93306

== ENCOUNTER → 2023-04-26 12:50 | Outpatient (BNV) | payer MEDICARE, SELFPAY | PROVIDERS: PCP Internal Medicine; Visit Provider Internal Medicine | DX: I35.0 Nonrheumatic aortic (valve) stenosis (principal) | CPT/HCPCS: 93306 ==

== ENCOUNTER 2023-04-26 14:09 | Outpatient (REF) | payer MEDICARE, SELFPAY ==
[2023-04-26 15:56] LABS: Anion Gap 13 (12-20); Blood Urea Nitrogen 16 mg/dL (9-16); Calcium 9.5 mg/dL (8.4-10.2); Carbon Dioxide 27 mmol/L (22-29); Chloride 108 mmol/L (96-108); Estimated Glomerular Filt Rate > 60; Glucose Random 231 mg/dL (60-115); Sodium 143 mmol/L (135-145)
[2023-04-27 07:32] LABS: Estimated Average Glucose 252 mg/dL; Hemoglobin A1c % 10.4 % (<6.0)
== END 2023-04-26 14:10 | disposition home or self-care (01) ==
LOC: HO.LAB 14:09
PROVIDERS: PCP Internal Medicine; Visit Provider Internal Medicine
DX: E11.9 Type 2 diabetes mellitus without complications (principal); Z79.4 Long term (current) use of insulin
CPT/HCPCS: 36415; 80048; 83036

== ENCOUNTER 2023-05-06 13:29 | Outpatient (AMB) | payer MEDICARE, SELFPAY ==
[2023-05-06 13:35] VITALS: BP 116/66; PULSE 86; BMI 24.8
--- NOTE | 2023-05-06 13:35 | MHC.OFFVIS ---
Intake Vital Signs 05/06/23 13:35 Height 5 ft 8 in Weight 163 lb 2.273 oz BMI 24.8 BP 116/66 Blood Pressure Location Lt brachial Position Sitting Pulse 86 Intake Visit Reasons: 1 yr f/u after echo Intake Note: 1 year follow-up with ekg after echo feeling good Customer Contact Sales Associate Required: No Equal Opportunity Specialist: Equal Opportunity Specialist Present Accompanied by: Spouse Allergies No Known Allergies [No Known Allergies*] Allergy (Verified 10/20/22 14:56) Medication List - Last Reconciled 05/06/23 by Rosas Juan MD amlodipine 2.5 mg PO DAILY aspirin (Adult Aspirin Regimen) 81 mg PO DAILY atorvastatin 80 mg PO DAILY blood sugar diagnostic (Whoisuch Ultra Test strips) As directed blood-glucose meter (Whoisuch Ultra2 Meter) As directed cilostazol 50 mg PO BID cyclobenzaprine 10 mg PO TID PRN empagliflozin (Jardiance) 10 mg PO DAILY ezetimibe 10 mg PO DAILY insulin detemir U-100 (Levemir U-100 Insulin) 30 units subcut BID insulin glargine (Lantus U-100 Insulin) 30 units subcut BID lisinopril 20 mg PO DAILY metformin 500 mg PO BID omeprazole 20 mg PO QAM ropinirole 2 mg PO BEDTIME HPI HPI Comments History of Present Illness Details Zachery comes for follow-up he has been doing well. Remains active. Denies any symptoms exertional chest pain or shortness of breath. Denies any orthopnea, PND, leg edema. Denies any lightheadedness, syncope. Most recent echocardiogram shows moderate aortic stenosis with normal LV ejection fraction with possible basal inferior wall motion abnormality with moderate LVH. He takes all his medications. He said he was recently started on Jardiance and he said it is very expensive for him. [facility] Medical History Aortic stenosis Hiatal hernia Multilevel spondylosis CAD (coronary artery disease) Chronic GERD HTN (hypertension) High cholesterol IDDM (insulin dependent diabetes mellitus) Surgical History S/P cardiac cath History of surgery History of esophagogastroduodenoscopy (EGD) Hx of colonoscopy Family History Father Enlarged heart Mother Cancer Social History Cigarettes Per Day: 10 Years Smoked: 60 Review of Systems Const Denies chills, Denies fatigue, Denies fever(s), Denies frequent falls, Denies weakness, Denies weight gain and Denies weight loss ENT Reports Normal hearing present and Denies dizziness Card Denies chest pain, Denies leg edema, Denies lightheadedness, Denies palpitations, Denies dyspnea, Denies dyspnea on exertion, Denies orthopnea and Denies other (loss of consciousness) Resp Denies cough, Denies dyspnea and Denies dyspnea on exertion GI Denies hematochezia and Denies change in stool character Musc Denies abnormal gait, Denies muscle weakness, Denies numbness, Denies radiating pain into limb and Denies tingling Neuro Reports Normal hearing present, Denies abnormal gait, Denies dizziness, Denies frequent falls, Denies numbness, Denies tingling and Denies weakness Endo Denies fatigue and Denies palpitations Physical Exam Vital Signs: Last Vital Signs Pulse 86 05/06/23 13:35 BP 116/66 05/06/23 13:35 BMI result Body Mass Index 24.8 Const General: cooperative, healthy appearing and comfortable Orientation/consciousness: oriented to person, oriented to place and oriented to time HEENT Head: Yes normal to inspection Neck Neck: Yes normal visual inspection Carotids: no bruits Chest Chest palpation & inspection: normal inspection of the chest Resp Effort & Inspection: normal respiratory effort and able to speak in complete sentences Auscultation: clear to auscultation bilaterally, no crackles, no rales, no rhonchi and no wheezes Cardio Rate: regular rate Rhythm: regular rhythm Heart sounds: S1 normal heart sound present, S2 normal heart sound present, no click, no gallops and Murmur heart sound present systolic mid Bruits: no carotid bruits Peripheral pulses: Peripheral pulses 2+ throughout GI Inspection: Yes normal to inspection Skin Wounds: no wounds Hair: normal Neuro General: oriented to person, oriented to place and oriented to time Cranial nerves: Yes CN's II-XII intact bilaterally and Yes Normal hearing present Cognition (Neuro): normal cognition Motor exam (neuro): 5/5 motor strength present throughout Extrem Other: venous exam: No significant superficial varicosities or spider telangiectasias, minimal edema General: No clubbing, No cyanosis and No edema Psych Appearance: grossly normal Mental Status: mental status grossly normal Speech and movement: Normal speech and movement present Office Procedures EKG Details: EKG shows normal sinus rhythm with PACs with inferior Q-waves of small amplitude [id number], Complete Assessment & Plan Assessment & Plan (1) Aortic stenosis: Code(s): I35.0 - Nonrheumatic aortic (valve) stenosis Plan: Aortic stenosis which remains stable and moderate. No interventions required per se for the same. We discussed about pathophysiology of aortic stenosis again and gradual progression. Follow up with echocardiogram in year's time. Cardinal symptoms of aortic stenosis were discussed advised to call me with any new symptoms. He understands agrees. Continue aggressive vascular risk factor modification, see below. (2) CAD (coronary artery disease): Comment: Chronic total occlusion of distal RCA with with large territory with grade 3 collaterals from left system. Unable to do PCI with localized dissection. Due to lack of symptoms was advised to be managed medically. Code(s): I25.10 - Atherosclerotic heart disease of [place] coronary artery without angina pectoris Plan: CAD with chronic total occlusion of the RCA. He has no symptoms of angina with his current functionality. He also has peripheral vascular disease being followed by surgery. He has no history of heart failure and Jardiance if to extensive may be switched to alternative agent for management of diabetes. Continue lifelong aspirin therapy. Can consider low-dose oral anticoagulation therapy. Blood pressure is currently well optimized advised to continue current therapy. Importance of good blood pressure control was discussed. Continue high-intensity statin therapy with ezetimibe. Target goal LDL closer to 60 mg/dL. Diabetes under your care with goal hemoglobin A1c less than 7%. Follow up in the clinic in 1 year's time after an echocardiogram. Thank you for allowing me to partake in his care Coding Level of Care Code Est Pt Level 4 (76944) Diagnoses Aortic stenosis I35.0 CAD (coronary artery disease) I25.10 CPT Codes EKG - CPT: 16770-[id number], Complete ([id number])
== END 2023-05-06 13:54 | disposition home or self-care (01) ==
PROVIDERS: Visit Provider Internal Medicine Cardiovascular Disease
DX: I35.0 Nonrheumatic aortic (valve) stenosis (principal); I25.10 Atherosclerotic heart disease of native coronary artery without angina pectoris
CPT/HCPCS: 93010; 99214

== ENCOUNTER → 2023-05-06 13:29 | Outpatient (BNVA) | payer MEDICARE, SELFPAY | PROVIDERS: Visit Provider Internal Medicine Cardiovascular Disease | DX: I35.0 Nonrheumatic aortic (valve) stenosis (principal); I25.10 Atherosclerotic heart disease of native coronary artery without angina pectoris | CPT/HCPCS: 93005; 99212 ==